=== PATIENT | male | born 1935 | race Caucasian/White ===

== ENCOUNTER 2021-09-10 22:13 | Inpatient (IN) | payer MEDICARE, SELFPAY ==
[2021-09-10 22:32] VITALS: BP 194/130; PULSE 110; RESP 18; TEMP 37; O2SAT 97; BMI 34.4
--- NOTE | 2021-09-10 23:35 | ED_ITS ---
HPI - Male Genitourinary General: Chief complaint: Urogenital-Male Stated complaint: Urinary Problems Time Seen by Provider: 09/10/21 23:35 History of Present Illness: HPI Narrative: Mr. Soliz is an 86-year-old gentleman with significant past medical history of hypertension who presents emergency department due to urinary complaint. He reports a history of increasing of typical prostate enlargement symptoms including multiple nocturnal awakening and needs to urinate and decrease stream however today he developed acute onset hematuria and inability to void. Intensity of symptoms is moderate to severe. He notes discomfort with attempting to urinate and a burning sensation. He denies significant abdominal pain. No signs of infectious symptoms. No systemic symptoms. He denies similar episodes in the past Review of Systems General: Reports: 10 or more systems reviewed and unremarkable except in HPI and below PFSH ED PFSH: Medical History (Updated 09/11/21 @ 10:39 by Avery Galloway MD) Central retinal artery occlusion Not confirmed Diabetes mellitus Hypertension associated with diabetes Surgical History (Updated 09/11/21 @ 10:35 by Avery Galloway MD) History of appendectomy History of cholecystectomy Family History (Updated 09/11/21 @ 10:36 by Avery Galloway MD) Other Stroke Social History (Updated 09/11/21 @ 10:36 by Avery Galloway MD) Smoking and tobacco status: former smoker Alcohol intake: current Alcohol intake frequency: few times a month Physical Exam Narrative: EXAM NARRATIVE: GENERAL/CONSTITUTIONAL - well-appearing. Somewhat uncomfortable, standing in room Eyes - PERRL, no conjunctival injection ENMT - Atraumatic external nose and ears. Moist mucous membranes NECK - supple. trachea midline CARDIOVASCULAR - regular rate and rhythm. Peripheral pulses 2+ and equal RESPIRATORY -clear to auscultation bilaterally. No retractions or accessory muscle use. ABDOMEN/GI -mild generalized tenderness to palpation/Nondistended. No tenderness to percussion or evidence of peritonitis MSK - Extremities without obvious deformity or tenderness to palpation SKIN - Warm, Dry NEURO - alert and appropriately oriented. Moves all extremities equally. Course ED course: - Patient was seen and evaluated by me at bedside - Patient placed on cardiac monitors, IV access obtained - Initial evaluation notable for uncomfortable appearance, no acute distress -Symptom treatment ordered - Labs notable for mild leukocytosis, metabolic panel notable for TAYLOR. Urinalysis with packed RBCs, no evidence of infection - Imaging notable for enlarged prostate with significant distention/burden despite catheter -Discussed case with Dr. Gupta, patient to be admitted to his service for acute clot retention. As discussed with him irrigated bladder manually with 2 to 3 L followed by CBI. Instructed nurse as such - Upon serial reexamination after treatment the patient was improved with symptomatic treatment - Medicine service consulted for comanagement of hypertension - Based on patient history, evaluation, labs, and imaging as interpreted the most likely cause of the patient's condition is acute clot retention - The results of ED evaluation were discussed with the patient including plan for admission due to requirement for level of care not available if discharged to prevent significant worsening/deterioration. -Patient to be admitted to hospital for further management. - Patient was admitted without further deterioration or significant events. Vital Signs: Vital signs: Vital Signs Temperature 98.3 F 09/13/21 00:00 Pulse Rate 80 09/13/21 00:00 Respiratory Rate 18 09/13/21 00:00 Blood Pressure 174/106 09/13/21 00:00 Pulse Oximetry 96 09/13/21 00:00 MDM - Male Medical Records: Attestation: I reviewed the patient's medical records. Lab Data: Attestation: I reviewed the patient's lab results. Labs: Lab Results 09/11/21 09/11/21 09/11/21 00:45 00:45 01:10 WBC 12.5 10^3/uL H 10 ^3/uL (4.0-10.0) RBC 4.78 10^6/uL 10^6 /uL (4.1-5.3) Hgb 14.1 g/dL g/dL (11.7-16.6) Hct 42.4 % % (42.0-52.0) MCV 88.7 fl fl (80-94) MCH 29.5 pg pg (28.0-34.0) MCHC 33.3 g/dL g/dL (30.0-36.0) RDW 12.9 % % (12.1-15.1) Plt Count 303 10^3/cmm 10^3 /cmm (130-400) MPV 9.9 fL fL (7.4-10.4) Neut % (Auto) 78.4 % % Lymph % (Auto) 12.6 % % [place] % (Auto) 7.2 % % Eos % (Auto) 0.7 % % Baso % (Auto) 0.6 % % Neut # (Auto) 9.81 10^3/uL H 10 ^3/uL (1.8-7.7) Lymph # (Auto) 1.6 10^3/uL 10^3/ uL (0.8-4.8) [place] # (Auto) 0.9 10^3/uL 10^3/ uL (0.2-0.9) Eos # (Auto) 0.1 10^3/uL 10^3/ uL (0.0-0.8) Baso # (Auto) 0.1 10^3/uL 10^3/ uL (0.0-0.1) Nucleated RBC % (a uto) 0 % % Nucleated RBCs # 0.0 /100WBC /100W BC Sodium 137 mmol/L mmol/L (136-145) Potassium 3.6 mmol/L mmol/L (3.5-5.1) Chloride 96 mmol/L L mmol/ L (98-107) Carbon Dioxide 22 mmol/L mmol/L (22-29) Anion Gap 22.6 H (5-19) BUN 26 mg/dL H mg/dL (8-23) Creatinine 1.9 mg/dL H mg/dL (0.7-1.2) GFR Calculation Not Reportable Glucose 137 mg/dL H mg/dL (65-115) POC Glucose Calculated Osmolal ity 291 mOsm/kg mOsm/ kg (285-295) Calcium 9.7 mg/dL mg/dL (8.5-10.5) Total Bilirubin 0.6 mg/dL mg/dL (0.15-1.2) AST 16 U/L U/L (0-40) ALT 14 U/L U/L (0-41) Alkaline Phosphata se 84 IU/L IU/L (40-130) Total Protein 8.8 g/dL H g/dL (6.6-8.7) Albumin 4.8 g/dL g/dL (3.5-5.2) Globulin 4.0 g/dL g/dL (1.3-4.6) Urine Color Red (Yellow) Urine Appearance Cloudy (CLEAR) Urine pH 5 (5-7) Ur Specific Gravit y 1.015 (1.005-1.030) Urine Protein 3+ H (Negative) Urine Glucose (UA) Norm (Normal) Urine Ketones Negative (Negative) Urine Blood 3+ H (Negative) Urine Nitrate Negative (Negative) Urine Bilirubin Neg (Negative) Urine Urobilinogen Norm mg/dL mg/dL (Negative) Ur Leukocyte [place] ase Negative (Negative) Urine RBC Too numerous to c nt /hpf H /hpf (0-2) Urine WBC 0-4 /hpf H /hpf (0-5) Ur Squamous Epith Cells 0-4 /hpf H /hpf (0-5) Amorphous Sediment Not Reportable Urine Bacteria Trace /hpf /hpf (NONE) 09/11/21 11:45 WBC RBC Hgb Hct MCV MCH MCHC RDW Plt Count MPV Neut % (Auto) Lymph % (Auto) [place] % (Auto) Eos % (Auto) Baso % (Auto) Neut # (Auto) Lymph # (Auto) [place] # (Auto) Eos # (Auto) Baso # (Auto) Nucleated RBC % (a uto) Nucleated RBCs # Sodium Potassium Chloride Carbon Dioxide Anion Gap BUN Creatinine GFR Calculation Glucose POC Glucose 148 mg/dL H mg/dL (70-110) Calculated Osmolal ity Calcium Total Bilirubin AST ALT Alkaline Phosphata se Total Protein Albumin Globulin Urine Color Urine Appearance Urine pH Ur Specific Gravit y Urine Protein Urine Glucose (UA) Urine Ketones Urine Blood Urine Nitrate Urine Bilirubin Urine Urobilinogen Ur Leukocyte [place] ase Urine RBC Urine WBC Ur Squamous Epith Cells Amorphous Sediment Urine Bacteria Discharge Plan Discharge Admit Provider: Samra Felton Coding Level of Care Code ED Plastic Extruding Machine Operator for [facility]
[2021-09-11] VITALS (12 sets, daily range): BP systolic 131–215; BP diastolic 79–124; PULSE 76–131; RESP 16–28; TEMP 36.8–37.3; O2SAT 91–98; BMI 34.4
--- NOTE | 2021-09-11 00:14 | CTR_ITS ---
PROCEDURE INFORMATION: Exam: CT Abdomen And Pelvis Without Contrast Exam date and time: 09/11/2021 12:14 AM Age: 86 years old Clinical indication: Abdominal pain; Localized; Lower; Prior surgery; Surgery type: Gb; Patient HX: Pelvic/penile pain with hematuria. Trimble in place. ; Additional info: Urinary pain, hematuria, tachycardia TECHNIQUE: Imaging protocol: Computed tomography of the abdomen and pelvis without contrast. Radiation optimization: All CT scans at this facility use at least one of these dose optimization techniques: automated exposure control; mA and/or kV adjustment per patient size (includes targeted exams where dose is matched to clinical indication); or iterative reconstruction. COMPARISON: No relevant prior studies available. RADIATION DOSE METRICS: Total DLP (mGy-cm): 1794.87 FINDINGS: Tubes, catheters and devices: There is a Trimble catheter within the urinary bladder which remains distended. Liver: No mass. Gallbladder and bile ducts: Status post cholecystectomy. Pancreas: No ductal dilation. Spleen: No splenomegaly. Adrenal glands: Normal. No mass. Kidneys and ureters: Bilateral renal cysts. See below. Stomach and bowel: No dilated bowel loops. No high-grade obstruction. Appendix: No evidence of appendicitis. Intraperitoneal space: No free air. No significant fluid collection. Vasculature: No abdominal aortic aneurysm. Lymph nodes: Multiple enlarged retroperitoneal, pelvic, and iliac chain lymph nodes. Slightly prominent left inguinal lymph nodes. Urinary bladder: There is globular hyperdense material within the bladder probably representing blood products. Bilateral hydroureteronephrosis to the level of the urinary bladder, left greater than right. Reproductive: Enlarged heterogeneous prostate gland noted. Bones/joints: Severe degenerative changes noted in the lumbar spine associated canal and foraminal stenosis most prominent at L3-L4, L4-L5 and L5-S1. Soft tissues: Predominantly fat containing inguinal hernias. CT/CT kidney stone [id number] IMPRESSION: 1. Enlarged heterogeneous prostate gland, underlying malignant mass is not excluded, correlate with patient history. There is a Trimble catheter within the urinary bladder which remains distended. There is globular hyperdense material within the bladder probably representing blood products. 2. Bilateral hydroureteronephrosis to the level of the urinary bladder, left greater than right. 3. Multiple enlarged retroperitoneal, pelvic and iliac chain lymph nodes. COMMENTS: Consistent with the [employer]'s Incidental Findings Committee white paper (J Am Dave Radiol 2018): Any incidental renal lesion less than 1 cm or classified as too small to characterize, or any incidental cystic renal lesion characterized as simple-appearing, is likely benign. No follow-up imaging is recommended for these lesions per consensus recommendations based on imaging criteria. Radiation Dose CTDIVOL = (mGy): DLP = 1794.87 (mGy-cm)
[2021-09-11] MEDS: morphine 4 mg/mL SDV 1 mL IVP (00:27)
[2021-09-11] MEDS: sodium chloride 0.9% 1,000 ML 999 ML IV (00:27)
[2021-09-11 01:01] LABS: Basophils # 0.1 10^3/uL (0.0-0.1); Basophils % 0.6 %; Eosinophils # 0.1 10^3/uL (0.0-0.8); Eosinophils % 0.7 %; Hematocrit 42.4 % (42.0-52.0); Hemoglobin 14.1 g/dL (11.7-16.6); Lymphocytes # 1.6 10^3/uL (0.8-4.8); Lymphocytes % 12.6 %; Mean Corpuscular HGB Conc 33.3 g/dL (30.0-36.0); Mean Corpuscular Hemoglobin 29.5 pg (28.0-34.0); Mean Corpuscular Volume 88.7 fl (80-94); Mean Platelet Volume 9.9 fL (7.4-10.4); Monocytes # 0.9 10^3/uL (0.2-0.9); Monocytes % 7.2 %; Neutrophils # 9.81 10^3/uL (1.8-7.7); Neutrophils % 78.4 %; Nucleated Red Blood Cells % 0 %; Platelet Count 303 10^3/cmm (130-400); Red Blood Count 4.78 10^6/uL (4.1-5.3); Red Cell Distribution Width 12.9 % (12.1-15.1); White Blood Count 12.5 10^3/uL (4.0-10.0)
[2021-09-11 01:24] LABS: Alanine Aminotransferase 14 U/L (0-41); Albumin Level 4.8 g/dL (3.5-5.2); Alkaline Phosphatase 84 IU/L (40-130); Anion Gap 22.6 (5-19); Aspartate Amino Transferase 16 U/L (0-40); Blood Urea Nitrogen 26 mg/dL (8-23); Calcium 9.7 mg/dL (8.5-10.5); Carbon Dioxide 22 mmol/L (22-29); Chloride 96 mmol/L (98-107); Glucose 137 mg/dL (65-115); Osmolality Calculated 291 mOsm/kg (285-295); Potassium 3.6 mmol/L (3.5-5.1); Sodium 137 mmol/L (136-145); Total Bilirubin 0.6 mg/dL (0.15-1.2); Total Protein 8.8 g/dL (6.6-8.7)
[2021-09-11 01:27] LABS: Add Urine Culture? Yes; Add Urine Microscopic? YES; Bacteria Urine TRACE /hpf; Bilirubin Urine Neg (Negative); Blood Urine 3+ (Negative); Glucose Urine UA Norm (Normal); Ketones Urine Negative (Negative); Leukocyte Esterase Urine Negative (Negative); Nitrate Urine Negative (Negative); Protein Urine 3+ (Negative); RBC Urine TOO NUMEROUS TO CNT /hpf (0-2); Specific Gravity, Urine 1.015 (1.005-1.030); Squamous Epithelial Cell Urine 0-4 /hpf (0-5); Urine Appearance Cloudy (CLEAR); Urine Color Red (Yellow); Urobilinogen Urine Norm (Negative); WBC Urine 0-4 /hpf (0-5); pH Urine 5 (5-7)
[2021-09-11] MEDS: fentaNYL 50 mcg/mL INJ 2mL IVP (01:52)
[2021-09-11] MEDS: HYDROmorphone 1 mg/mL INJ 1 mL IVP ×3 (02:35→06:19)
[2021-09-11] MEDS: ketorolac 30 mg/mL INJ 15 MG IVP (03:58)
[2021-09-11] MEDS: sodium chloride 0.9% 1,000 ML 100 ML IV ×2 (04:11→14:47)
[2021-09-11] MEDS: tamsulosin 0.4 mg Capsule PO (04:26)
--- NOTE | 2021-09-11 07:16 | PC.PHAR ---
pts verified pts medications-rx filled on 07/04/21 for flomax 0.4mg daily pts states she is not giving the pt that medication states it makes him sick-pts states she is giving the pt finasteride 5mg bid rx filled for 5mg daily filled on 07/04/21 90d/s-pts states the pt had nitro 0.4mg tab to use prn states the pt doesnt have anymore and never needed it-pts states she gave the pt azo-uronalin from [place] and only gave the pt one tab once yesterday-notes are made in the pharmacy comments
--- NOTE | 2021-09-11 07:55 | P.CONIM_ITS ---
Providers/Reason For Consult Consulting Physician/Specialty*: Urology/Gupta Reason for Consult*: Urinary retention Gross hematuria Attending Physician: Avery Galloway MD History of Present Illness History of Present Illness Alexi Soliz is a 86 year old male who I evaluated for the first time today at the request of the emergency department. He presented with urinary retention about 10 PM last night with several days of increasing symptoms. Had a little bit of blood in his urine off and on during those days but denies any prior history of that. He thought that he he has been having gradually progressive lower urinary tract symptoms consistent with bladder obstruction over period of time but did not pay a lot of attention to it. Unaware of prior PSAs or DREs. CT scan was performed in the emergency department with the importance of following findings: 1. Bilateral hydronephrosis left greater than sign right down to the ureterovesical junction 2. Grossly abnormal prostate with apparent encroachment upon the bladder floor and likely the ureteral orifices and trigone. 3. Pelvic lymphadenopathy 4. Small amount of blood clot in the bladder at time of CT scan. Catheter was not draining very well at that time. Lab: Creatinine 1.9, alkaline phosphatase was normal, hemoglobin was around 14. Urinalysis was bloody without obvious infection. Treatment: Initially a 16 [place] catheter was placed but was not draining adequately. A 22 Mexican three-way Deneen hematuria Cou[place] catheter was placed clot irrigated and CBI initiated. Catheter has been functioning well since then. Pertinent physical findings: Grossly abnormal GEOVANNY with nodularity and size commiserate with the findings on the CT scan. 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 Evidence of lymphadenopathy consistent with regional metastasis. I reviewed all the above in detail with the patient and his . Categorized priorities as followin. Focus on catheter management for now with CBI manual irrigation etc. 2. Will need prostate biopsy 3. Sequencing of events to be determined still. 4. BICALUTAMIDE 50 mg daily. Review of Systems Const: Denies: fever(s) or chills Eyes: Denies: change in vision or blurry vision ENMT: Denies: hoarseness Card: Denies: chest pain or palpitations Resp: Denies: dyspnea or wheezing GI: Reports: abdominal pain; Denies: nausea or vomiting Musc: Denies: joint redness or joint warmth Skin/Breast: Denies: rash or changing lesions Neuro: Denies: confusion, Slurred speech present or seizure-like activity Psych: Reports: anxiety (Related to medical condition) Endo: Denies: flushing Luis/Lymph: Denies: easy bruising All/Imm: Denies: urticaria or acute wheezing Meds/Allergies Home Medications and Allergies Home Medications Medication Instructions Recorded Confirmed Last Taken Type Azo-Uronalin 1 tab PO ONCE 09/11/21 09/11/21 09/10/21 History aspirin [Aspir-81] 81 mg PO QAM 09/11/21 09/11/21 Unknown History finasteride 5 mg PO BID 09/11/21 09/11/21 Unknown History hydrochlorothiazide 25 mg PO QAM 09/11/21 09/11/21 Unknown History metformin 850 mg PO BID 09/11/21 09/11/21 Unknown History metoprolol tartrate 50 mg PO BID 09/11/21 09/11/21 Unknown History zstiurwfrvll-gcyllflp-sbghfo 1 tab PO DAILY 09/11/21 09/11/21 Unknown History [Centrum Silver] telmisartan See Rx Instructions .ROUTE .COMPLEX 09/11/21 09/11/21 Unknown History vit C,E-Co-lypls-lutein-zeaxan 1 tab PO BID 09/11/21 09/11/21 Unknown History [PreserVision AREDS-2] Allergies Allergy/AdvReac Type Severity Reaction Status Date / Time No Known Allergies Allergy Verified 09/11/21 07:16 Current Medications Current Medications Generic Name Dose Route Start Last Admin Trade Name Freq PRN Reason Stop Dose Admin Sodium Chloride 1,000 mls @ 100 mls/hr 09/11/21 04:15 09/11/21 04:11 Sodium Chloride 0.9% IV 100 mls/hr .Q10H LOLITA Administration PFSH Acute PFSH: Medical History (Updated 09/11/21 @ 10:39 by Avery Galloway MD) Central retinal artery occlusion Not confirmed Diabetes mellitus Hypertension associated with diabetes Surgical History (Updated 09/11/21 @ 10:35 by Avery Galloway MD) History of appendectomy History of cholecystectomy Family History (Updated 09/11/21 @ 10:36 by Avery Galloway MD) Other Stroke Social History (Updated 09/11/21 @ 10:36 by Avery Galloway MD) Smoking and tobacco status: former smoker Alcohol intake: current Alcohol intake frequency: few times a month Vitals/I&O/Wt Last Vital Signs Temp 99.0 F 09/11/21 06:59 Pulse 101 H 09/11/21 06:59 Resp 18 09/11/21 06:59 BP 131/95 09/11/21 06:59 Pulse Ox 97 09/11/21 06:59 09/10/21 09/11/21 09/11/21 22:59 06:59 14:59 Intake Total 1000 / 1000 Balance 1000 / 1000 Weight last 48 hrs Weight 220 lb Physical Exam Const: COMMON NORMALS: no acute distress, alert and well nourished GENERAL APPEARANCE: well kempt and well developed ORIENTATION/CONSCIOUSNESS: not confused HENMT: COMMON NORMALS: normocephalic and atraumatic HEAD & SCALP: normoce phalic and atraumatic Eye: COMMON NORMALS: conjunctivae normal and no scleral icterus CONJUNCTIVA: Yes conjunctivae normal Neck/C-Spine: COMMON NORMALS: full ROM GENERAL: Yes normal visual i nspection Resp: COMMON NORMALS: normal respiratory effort EFFORT & INSPECTION: No labored and No Actively coughing GI: COMMON NORMALS: Soft to palpation PALPATION: Yes Soft to palpation and No Tenderness to palpation present (GI) RECTAL EXAM: Yes visual inspection normal, Yes normal sphincter tone and No mass OTHER: Grossly abnormal prostate: Nodular, huge, can only palpate the distal aspect. Consistent with locally invasive HUMAN RESOURCE ANALYST. : MALE GROIN/PERINEUM EXAM: No ecchymosis and No hernia PENIS: normal penis MEATUS: meatus normal, no meatla discharge and No Blood at meatus present SCROTUM: Yes testes descended bilaterally, No edematous and No scrotal swelling TESTES: No absent testicle, No testicular tenderness, No testicular mass, Yes epididymides normal and No epididymal tenderness Neuro: SENSORIUM/ORIENTATION: Yes alert Psych: COMMON NORMALS: mental status grossly normal APPEARANCE: Yes grossly normal and Yes well kempt ATTITUDE: Yes calm and Yes engaged Skin: COMMON NORMALS: no rashes or lesions noted and no jaundice GENERAL SKIN EXAM: no rashes or lesions noted Urinary Catheter Management^: Trimble: Cath Placed During This Visit: yes Reason for Continuing Indwelling Catheter: Acute Urinary Retention or Obstruction Urinary Catheter Date of Insertion: 09/11/21 Urinary Catheter Time of Insertion: 03:45 A&P Assessment and plan (1) Acute urinary retention: Possibly clot related but more likely related to progressive obstruction from prostatic growth worrisome for prostate cancer. Status: Acute (2) Bilateral hydronephrosis: Status: Acute (3) Abnormal prostate on physical examination: Clinically consistent with prostate cancer Status: Acute (4) Pelvic lymphadenopathy: Status: Acute (5) Gross hematuria: Clinically and radiographically. Annual irrigate continue CBI as needed. Status: Acute Consult Attestations Medical Necessity Statement: Urinary retention with gross hematuria requiring CBI Coding Level of Care Code Acute Regional Sales Coordinator for [facility] Fwd Exam Comprehensive Diagnoses Acute urinary retention R33.8 Bilateral hydronephrosis N13.30 Abnormal prostate on physical examination N42.9 Pelvic lymphadenopathy R59.0 Gross hematuria R31.0
--- NOTE | 2021-09-11 10:32 | PM.HP ---
Providers/Chief Complaint Admitting Physician: Avery Yanez Chief Complaint: Urinary Problems History of Present Illness Alexi Soliz is a 86 year old male who presented to the emergency department with complaints of abdominal discomfort, noting blood in his urine. Slow urine flow has been going on for quite a while but concerns of obstruction in the last 1 to 2 days. No fevers, chills. No vomiting. Pain is better after placement of Trimble catheter. Urology has been consulted secondary to concern of prostate cancer, bilateral hydronephrosis. Review of Systems General: Reports: 10 or more systems reviewed and unremarkable except in HPI and below Const: Denies: fever(s) or chills Eyes: Denies: change in vision ENMT: Denies: throat pain Card: Denies: chest pain Resp: Denies: dyspnea GI: Reports: abdominal pain : Reports: difficulty urinating, urinary dribbling, oliguria and hematuria Musc: Denies: neck pain Skin/Breast: Denies: rash Neuro: Denies: headache(s) Psych: Denies: anxiety Endo: Denies: polyuria Luis/Lymph: Denies: easy bruising All/Imm: Denies: urticaria Medications/Allergies Home Medications Medication Instructions Recorded Confirmed Last Taken Type Azo-Uronalin 1 tab PO ONCE 09/11/21 09/11/21 09/10/21 History aspirin [Aspir-81] 81 mg PO QAM 09/11/21 09/11/21 Unknown History finasteride 5 mg PO BID 09/11/21 09/11/21 Unknown History hydrochlorothiazide 25 mg PO QAM 09/11/21 09/11/21 Unknown History metformin 850 mg PO BID 09/11/21 09/11/21 Unknown History metoprolol tartrate 50 mg PO BID 09/11/21 09/11/21 Unknown History tgfjbhkvrvwb-nempnvmd-cyeezo 1 tab PO DAILY 09/11/21 09/11/21 Unknown History [Centrum Silver] telmisartan See Rx Instructions .ROUTE .COMPLEX 09/11/21 09/11/21 Unknown History vit C,D-Qk-viuwe-lutein-zeaxan 1 tab PO BID 09/11/21 09/11/21 Unknown History [PreserVision AREDS-2] Allergies Allergy/AdvReac Type Severity Reaction Status Date / Time No Known Allergies Allergy Verified 09/11/21 07:16 PFSH Acute PFSH: Medical History (Updated 09/11/21 @ 10:39 by Avery Galloway MD) Central retinal artery occlusion Not confirmed Diabetes mellitus Hypertension associated with diabetes Surgical History (Updated 09/11/21 @ 10:35 by Avery Galloway MD) History of appendectomy History of cholecystectomy Family History (Updated 09/11/21 @ 10:36 by Avery Galloway MD) Other Stroke Social History (Updated 09/11/21 @ 10:36 by Avery Galloway MD) Smoking and tobacco status: former smoker Alcohol intake: current Alcohol intake frequency: few times a month Vitals/I&O/Wt Last Vital Signs Temp 98.2 F 09/11/21 08:08 Pulse 88 09/11/21 08:08 Resp 16 09/11/21 08:08 BP 159/93 09/11/21 08:08 Pulse Ox 93 09/11/21 08:08 09/10/21 09/11/21 09/11/21 22:59 06:59 14:59 Intake Total 1000 / 1000 360 / 360 Balance 1000 / 1000 360 / 360 Weight last 48 hrs Weight 99.79 kg Physical Exam Narrative: EXAM NARRATIVE: General exam is a male, in no apparent distress HEENT: Atraumatic and normocephalic. Oropharynx clear Neck is supple no lymphadenopathy or thyromegaly Cardiovascular regular rate and rhythm Lungs clear no wheezing or crackles Abdomen is soft, positive bowel sounds. No obvious organomegaly exam is deferred Extremities no cyanosis clubbing. Trace edema is noted. Skin no rash Neuro no focal deficits Urinary Catheter Management^: Trimble: Cath Placed During This Visit: yes Reason for Continuing Indwelling Catheter: Acute Urinary Retention or Obstruction Urinary Catheter Date of Insertion: 09/11/21 Urinary Catheter Time of Insertion: 03:45 Data : 09/11/21 00:45 09/11/21 00:45 Other data: LFTs within normal limits Calcium normal Urinalysis with too numerous to count red blood cells and 0-[address] demonstrated enlarged prostate, bilateral hydronephrosis, enlarged retroperitoneal pelvic lymph nodes A&P Assessment and plan (1) Gross hematuria: Trimble placement, irrigation. Urology consultation appreciated Urine culture pending Rocephin pending culture. However, likelihood of bacterial infection may be low. Repeat hemoglobin in the a.m. Status: Acute (2) Acute urinary retention: Trimble placement. Likely secondary to prostate cancer. Status: Acute (3) Bilateral hydronephrosis: Trimble placement Status: Acute (4) Pelvic lymphadenopathy: Probable prostate cancer Urology consulted Status: Acute (5) Acute kidney injury: Hydration Repeat renal function in the morning Likely secondary to urinary retention and hydronephrosis Avoid anti-inflammatories and renal toxic medication. Status: Acute (6) Diabetes mellitus: Sliding scale insulin Status: Acute (7) Hypertension associated with diabetes: Continue to metoprolol Hold ARB secondary to renal dysfunction Hold thiazide diuretic secondary to renal dysfunction Status: Acute Additional A&P Information Full code SCDs for DVT prophylaxis, anticoagulation contraindicated secondary to hematuria Attestations Medical Necessity Statement*: Will need greater than 2 midnight stay for evaluation and treatment of acute kidney injury, obstructive uropathy, hematuria Time Spent in Patient Care: Greater than 35 minutes Coding Level of Care Code Acute Student Services Vice President for [facility] Fwd Diagnoses Gross hematuria R31.0 Acute urinary retention R33.8 Bilateral hydronephrosis N13.30 Pelvic lymphadenopathy R59.0 Acute kidney injury N17.9 Diabetes mellitus E11.9 Hypertension associated with diabetes E11.59; I15.2
--- NOTE | 2021-09-11 10:35 | PC.NURSE ---
patient was up to bathroom and CBI was noted not to be dripping. Pt was uncomfortable at this time. This nurse irrigated with a total of 200mL sterile saline and a large amount of medium sized clots and a total of 250mL returned. patient stated he felt better and pain had decreased from 8/10 to 3/10. CBI was hooked back up and pt running at a fast drip at this time. Resting in bed, call light within reach.
--- NOTE | 2021-09-11 10:56 | PC.CHAP ---
Pastoral Care Encounter/Spiritual Assessment Type of Contact [] Declined bargain table clerk visit [] Patient/Family/Request visit [] Outpatient visit [] Follow-up visit [] Physician referral [] Code/Alert [x] Routine visit [] Staff referral [] Actively dying [] Patient sleeping [] Family support [] [] Out of room [] Palliative care [] [x] Receiving care in room [] Pre-surgical visit [] Trauma [x] Long length of stay [] ICU visit [x] Other: unable to communicate Relational/Emotional Strength [] Patient feels connected with others/family/visitors/staff [] Distress [] Loneliness/isolation [] Abandonment Spirituality of Patient [] Person of Mickie [] Attends Jain of their Mickie [] Believes in Prayer [] Reads Bible or Druze materials [] There are Spiritual issues to be addressed And Rescue Fire Fighter Crash Fire Interventions [] Prayer [] Active listening [] Non-anxious presence [] Spiritual/emotional support [] Crisis/trauma care [] Spiritual counseling [] Bereavement support [] Provided bereavement packet [] Provided Bible/devotional materials [] Provided toy/stuffed animal, coloring book to patient or family member [] Provided Communion [] Anointing/[place] [] Salvation [] Completed spiritual assessment [] Other: Impact on Illness or Injury [] Angry [] Fearful [] Anxious [] Often cries [] Exhaustion [] Unable to work [] Unable to attend jehovah's witness [] Unable to walk/stand [] Unable to read [] Unable to drive [] Unable to eat/drink [] Unable to sleep [] Unable to be with family [] Patient intubated [] Other: Summary unable to communicate Time spent with patient 5 mins
[2021-09-11] MEDS: cefTRIAXone 1,000 MG in sodium chloride 0.9% (plus) 50 ML 100 MG IV (11:48)
[2021-09-11 12:18] LABS: Glucose Point of Care 148 mg/dL (70-110)
[2021-09-11] MEDS: insulin lispro 100 unit/1 mL SUBCUT (12:30)
[2021-09-11 17:14] LABS: Glucose Point of Care 140 mg/dL (70-110)
[2021-09-11] MEDS: docusate sodium 100 mg Capsule PO (17:26)
[2021-09-11] MEDS: metoprolol tartrate 50 mg Tablet PO (17:26)
--- NOTE | 2021-09-11 20:04 | PC.NURSE ---
BP BP 191/100 reported to pt care nurse
[2021-09-11 21:07] LABS: Glucose Point of Care 129 mg/dL (70-110)
[2021-09-11] MEDS: acetaminophen 325 mg Tablet 650 MG PO (21:10)
[2021-09-11] MEDS: oxyCODONE 5 mg IR Tab/Cap PO (21:10)
[2021-09-12] VITALS (11 sets, daily range): BP systolic 174–185; BP diastolic 75–131; PULSE 65–101; RESP 18–20; TEMP 36.4–36.9; O2SAT 94–98
[2021-09-12] MEDS: sodium chloride 0.9% 1,000 ML 100 ML IV (00:30)
[2021-09-12] MEDS: morphine 4 mg/mL SDV 1 mL 2 MG IVP (01:09)
[2021-09-12] MEDS: acetaminophen 325 mg Tablet 650 MG PO (04:17)
[2021-09-12] MEDS: oxyCODONE 5 mg IR Tab/Cap PO ×3 (04:17→22:27)
[2021-09-12 05:39] LABS: Basophils # 0.1 10^3/uL (0.0-0.1); Basophils % 0.8 %; Eosinophils # 0.4 10^3/uL (0.0-0.8); Eosinophils % 5.1 %; Hemoglobin 12.3 g/dL (11.7-16.6); Lymphocytes # 1.8 10^3/uL (0.8-4.8); Lymphocytes % 23.2 %; Mean Corpuscular HGB Conc 32.4 g/dL (30.0-36.0); Mean Corpuscular Hemoglobin 29.7 pg (28.0-34.0); Mean Corpuscular Volume 91.8 fl (80-94); Mean Platelet Volume 10.2 fL (7.4-10.4); Monocytes # 0.7 10^3/uL (0.2-0.9); Monocytes % 8.6 %; Neutrophils # 4.87 10^3/uL (1.8-7.7); Neutrophils % 61.8 %; Nucleated Red Blood Cells % 0 %; Platelet Count 247 10^3/cmm (130-400); Red Blood Count 4.14 10^6/uL (4.1-5.3); Red Cell Distribution Width 13.2 % (12.1-15.1); White Blood Count 7.9 10^3/uL (4.0-10.0)
--- NOTE | 2021-09-12 05:57 | PC.NURSE ---
Patient resting in bed, remains hypertensive with remaining VSS, c/o pain and is relieved by pain medication regimen in JAN. Patient has CBI running half open. Patient does not tolerate full open irrigation. Irrigation currently running pink however multiple manual irrigations required throughout shift. Patient tends to get out of bed with bladder fills and starts hurting, this causes irrigation to clot off and more manual irrigation required. This nurse explained situation to patient and that discomfort is expected when irrigation is wide open. WIll continue to monitor patient until report and handoff to oncoming nurse at shift change.
[2021-09-12 06:00] LABS: Blood Urea Nitrogen 23 mg/dL (8-23); Calcium 8.9 mg/dL (8.5-10.5); Carbon Dioxide 25 mmol/L (22-29); Chloride 101 mmol/L (98-107); Glucose 107 mg/dL (65-115); Magnesium 1.9 mg/dL (1.7-2.3); Osmolality Calculated 290 mOsm/kg (285-295); Sodium 138 mmol/L (136-145)
[2021-09-12 06:04] LABS: Anion Gap 15.9 (5-19); Potassium 3.9 mmol/L (3.5-5.1)
[2021-09-12 06:41] LABS: Glucose Point of Care 107 mg/dL (70-110)
[2021-09-12] MEDS: metoprolol tartrate 50 mg Tablet PO ×2 (08:41→18:10)
[2021-09-12] MEDS: docusate sodium 100 mg Capsule PO ×2 (08:41→18:10)
[2021-09-12] MEDS: tamsulosin 0.4 mg Capsule PO (08:42)
[2021-09-12] MEDS: amlodipine 5 mg Tablet PO (08:42)
--- NOTE | 2021-09-12 09:20 | PM.PN ---
Subjective Subjective: Interval history: Had some pain through the night. It sounds like this occurred when catheter was blocked. Reports no pain currently. Medications: Reviewed: Yes Vitals/I&O/Wt Last Vital Signs Temp 97.6 F 09/12/21 04:26 Pulse 65 09/12/21 04:26 Resp 20 H 09/12/21 04:26 BP 178/94 09/12/21 04:26 Pulse Ox 96 09/12/21 04:26 09/11/21 09/12/21 09/12/21 22:59 06:59 14:59 Intake Total 240 / 1650 1200 / 2850 Output Total 500 / 950 Balance -260 / 700 1200 / 1900 Weight last 48 hrs Weight 99.79 kg Weight 99.79 kg Physical Exam Narrative: EXAM NARRATIVE: General exam is a male, in no apparent distress Neck is supple no lymphadenopathy or thyromegaly Cardiovascular regular rate and rhythm Lungs clear no wheezing or crackles Abdomen is soft, positive bowel sounds. No obvious organomegaly urine in Trimble has cleared somewhat. Extremities no cyanosis clubbing, or edema Neuro no focal deficits Urinary Catheter Management^: Trimble: Cath Placed During This Visit: yes Reason for Continuing Indwelling Catheter: Other Urinary Catheter Date of Insertion: 09/11/21 Urinary Catheter Time of Insertion: 03:45 Data : 09/12/21 04:50 09/12/21 04:50 A&P Assessment and plan (1) Gross hematuria: Trimble placement, irrigation. Urology consultation appreciated Urine culture pending Rocephin pending culture. However, likelihood of bacterial infection may be low. Slight drop in hemoglobin noted. Status: Acute (2) Acute urinary retention: Trimble placement. Likely secondary to prostate cancer. Status: Acute (3) Bilateral hydronephrosis: Trimble placement Status: Acute (4) Pelvic lymphadenopathy: Probable prostate cancer Urology consulted Status: Acute (5) Acute kidney injury: Continue hydration Renal function improving Likely secondary to urinary retention and hydronephrosis Avoid anti-inflammatories and renal toxic medication. Status: Acute (6) Diabetes mellitus: Sliding scale insulin Status: Acute (7) Hypertension associated with diabetes: Continue to metoprolol Hold ARB secondary to renal dysfunction Hold thiazide diuretic secondary to renal dysfunction Add amlodipine 5 mg daily Status: Acute Additional A&P Information Full code SCDs for DVT prophylaxis, anticoagulation contraindicated secondary to hematuria Attestations Medical Necessity Statement*: Needs continued hospitalization, for hematuria and acute kidney injury for continued bladder irrigation. Coding Level of Care Code Acute Diesel Trailer Mechanic for Chg Fwd Diagnoses Gross hematuria R31.0 Acute urinary retention R33.8 Bilateral hydronephrosis N13.30 Pelvic lymphadenopathy R59.0 Acute kidney injury N17.9 Diabetes mellitus E11.9 Hypertension associated with diabetes E11.59; I15.2
[2021-09-12] MEDS: sodium chloride 0.9% 1,000 ML 75 ML IV ×2 (10:33→22:31)
[2021-09-12] MEDS: cefTRIAXone 1,000 MG in sodium chloride 0.9% (plus) 50 ML 100 MG IV (10:35)
--- NOTE | 2021-09-12 11:41 | PC.CHAP ---
Pastoral Care Encounter/Spiritual Assessment Type of Contact [x] Declined termite exterminator helper visit [] Patient/Family/Request visit [] Outpatient visit [] Follow-up visit [] Physician referral [] Code/Alert [x] Routine visit [] Staff referral [] Actively dying [] Patient sleeping [] Family support [] [] Out of room [] Palliative care [] [] Receiving care in room [] Pre-surgical visit [] Trauma [] Long length of stay [] ICU visit [] Other: Relational/Emotional Strength [] Patient feels connected with others/family/visitors/staff [] Distress [] Loneliness/isolation [] Abandonment Spirituality of Patient [] Person of Mickie [] Attends Christian of their Mickie [] Believes in Prayer [] Reads Bible or Denominational materials [] There are Spiritual issues to be addressed Fib[employer] Boat Parts Finisher Interventions [] Prayer [] Active listening [] Non-anxious presence [] Spiritual/emotional support [] Crisis/trauma care [] Spiritual counseling [] Bereavement support [] Provided bereavement packet [] Provided Bible/devotional materials [] Provided toy/stuffed animal, coloring book to patient or family member [] Provided Communion [] Anointing/[place] [] Salvation [x] Completed spiritual assessment [] Other: Impact on Illness or Injury [] Angry [] Fearful [] Anxious [] Often cries [] Exhaustion [] Unable to work [] Unable to attend zoroastrian [] Unable to walk/stand [] Unable to read [] Unable to drive [] Unable to eat/drink [] Unable to sleep [] Unable to be with family [] Patient intubated [] Other: Summary Time spent with patient
[2021-09-12 12:09] LABS: Glucose Point of Care 139 mg/dL (70-110)
--- NOTE | 2021-09-12 17:14 | P.PN_ITS ---
Subjective Subjective: Interval history: Urology follow-up: Has had a rough day with bladder pain and at times poor catheter function. I irrigated his catheter tonight with about 1000 cc of sterile water and removed about 100+ cc of clot. Relieved a lot of pain with that. CBI was flowing well afterwards. Reviewed with the nursing staff the importance of staying ahead of manual irrigation to remove clots especially if he is having pain, poor catheter drainage, poor CBI. Reviewed with patient and family. He is not able to be discharged yet. If it continues to be a problem I may have to take him to the operating room clot evacuation. The hope is to avoid that if it can be managed conservatively with manual irrigation and CBI Vitals/I&O/Wt Last Vital Signs Temp 97.7 F 09/12/21 16:00 Pulse 78 09/12/21 16:00 Resp 18 09/12/21 16:00 BP 174/109 09/12/21 16:00 Pulse Ox 96 09/12/21 16:00 09/12/21 09/12/21 09/12/21 06:59 14:59 22:59 Intake Total 1200 / 2850 1290 / 1290 Balance 1200 / 1900 1290 / 1290 Weight last 48 hrs Weight 220 lb Weight 220 lb Physical Exam Const: COMMON NORMALS: no acute distress, alert and well nourished GENERAL APPEARANCE: well kempt and well developed ORIENTATION/CONSCIOUSNESS: not confused HENMT: COMMON NORMALS: normocephalic and atraumatic HEAD & SCALP: normocephalic and atraumatic Eye: COMMON NORMALS: no scleral icterus Resp: COMMON NORMALS: normal respiratory effort EFFORT & INSPECTION: No labored and No Actively coughing Neuro: COMMON NORMALS: no focal motor deficits SENSORIUM/ORIENTATION: Yes alert Psych: COMMON NORMALS: mental status grossly normal APPEARANCE: Yes grossly normal and Yes well kempt ATTITUDE: Yes calm and Yes engaged Urinary Catheter Management^: Trimble: Cath Placed During This Visit: yes Reason for Continuing Indwelling Catheter: Other Urinary Catheter Date of Insertion: 09/11/21 Urinary Catheter Time of Insertion: 03:45 Data : 09/12/21 04:50 09/12/21 04:50 Micro: Microbiology 09/11/21 01:10 Urine Culture - Preliminary Urine,Clean Catch A&P Assessment and plan (1) Gross hematuria: Needs more aggressive catheter management with manual irrigation. Status: Acute (2) Abnormal prostate on physical examination: Status: Acute (3) Pelvic lymphadenopathy: Status: Acute (4) Acute urinary retention: Status: Acute (5) Bilateral hydronephrosis: Status: Acute Attestations Medical Necessity Statement*: CBI manual irrigation requirements are more than still required making him not a candidate for discharge yet. Coding Level of Care Code Acute Quality Assurance Test Program Manager for g Fwd Exam Detailed Diagnoses Gross hematuria R31.0 Abnormal prostate on physical examination N42.9 Pelvic lymphadenopathy R59.0 Acute urinary retention R33.8 Bilateral hydronephrosis N13.30 Time Spent (min) 45
[2021-09-12 17:47] LABS: Glucose Point of Care 152 mg/dL (70-110)
[2021-09-12] MEDS: insulin lispro 100 unit/1 mL SUBCUT (18:10)
--- NOTE | 2021-09-12 18:47 | PC.NURSE ---
CBI continued running during my shift. It required manual irrigation multiple times throughout my shift, with multiple small clots being returned. and patient educated on notifying staff when he gets up so we can make sure that the CBI is still working properly.
[2021-09-12 22:26] LABS: Glucose Point of Care 134 mg/dL (70-110)
[2021-09-13] VITALS (9 sets, daily range): BP systolic 144–175; BP diastolic 89–106; PULSE 67–102; RESP 16–20; TEMP 36.3–36.9; O2SAT 95–98
[2021-09-13 06:38] LABS: Glucose Point of Care 117 mg/dL (70-110)
[2021-09-13] MEDS: docusate sodium 100 mg Capsule PO (08:02)
[2021-09-13] MEDS: tamsulosin 0.4 mg Capsule PO (08:03)
[2021-09-13] MEDS: metoprolol tartrate 50 mg Tablet PO ×2 (08:03→17:43)
[2021-09-13] MEDS: amlodipine 5 mg Tablet PO (08:03)
--- NOTE | 2021-09-13 08:36 | PM.PN ---
Subjective Subjective: Interval history: Urology f/u: Doing well. Much less bleeding but CBI still required. No fever /chills, etc Denies bladder spasms. Rec: Continue CBI, if can stop can D/C and plan for OP biopsy. If continues to require CBI may scope in OR on Wednesday and do biopsy. Should be safe at that time regarding ASA effect. Vitals/I&O/Wt Last Vital Signs Temp 98.3 F 09/13/21 08:00 Pulse 102 H 09/13/21 08:00 Resp 16 09/13/21 08:00 BP 144/96 09/13/21 08:00 Pulse Ox 95 09/13/21 08:00 09/12/21 09/13/21 09/13/21 22:59 06:59 14:59 Intake Total 1257.5 / 2547.5 Output Total 100 / 650 5575 / 6225 Balance 1157.5 / 1897.5 -5575 / -3677.5 Physical Exam Const: COMMON NORMALS: no acute distress and patient oriented x3 Resp: COMMON NORMALS: normal respiratory effort EFFORT & INSPECTION: No respiratory distress GI: COMMON NORMALS: Soft to palpation, non-tender and no masses PALPATION: Yes Soft to palpation : COMMON NORMALS: Yes no CVA tenderness BLADDER/KIDNEY EXAM: Yes no CVA tenderness Back/Pelvis: COMMON NORMALS: no CVA tenderness Neuro: COMMON NORMALS: patient oriented x3 Psych: COMMON NORMALS: mental status grossly normal and cooperative ATTITUDE: Yes calm and Yes engaged Skin: COMMON NORMALS: no rashes or lesions noted GENERAL SKIN EXAM: no rashes or lesions noted Urinary Catheter Management^: Trimble: Cath Placed During This Visit: yes Reason for Continuing Indwelling Catheter: Accurate Measurement of Urinary Output in Critically Ill Patients Urinary Catheter Date of Insertion: 09/11/21 Urinary Catheter Time of Insertion: 03:45 Data : 09/12/21 04:50 09/12/21 04:50 Other Labs: PSA: 86 Micro: Microbiology 09/11/21 01:10 Urine Culture - Preliminary Urine,Clean Catch A&P Assessment and plan (1) Gross hematuria: Better after stepped up irrigation Status: Acute (2) Abnormal prostate on physical examination: consistent with science specialist PSA: 86 Status: Acute (3) Pelvic lymphadenopathy: Likely dental detail representative of science specialist, mets Status: Acute (4) Acute urinary retention: Trimble still necessary Status: Acute (5) Bilateral hydronephrosis: secondary to MALONEY Status: Acute Attestations Medical Necessity Statement*: Needs CBI Coding Level of Care Code Acute Can Closing Machine Tender for Chg Fwd Diagnoses Gross hematuria R31.0 Abnormal prostate on physical examination N42.9 Pelvic lymphadenopathy R59.0 Acute urinary retention R33.8 Bilateral hydronephrosis N13.30
[2021-09-13 09:06] LABS: Basophils # 0.1 10^3/uL (0.0-0.1); Basophils % 0.5 %; Eosinophils # 0.4 10^3/uL (0.0-0.8); Hematocrit 38.7 % (42.0-52.0); Hemoglobin 12.6 g/dL (11.7-16.6); Lymphocytes # 1.4 10^3/uL (0.8-4.8); Lymphocytes % 15.5 %; Mean Corpuscular HGB Conc 32.6 g/dL (30.0-36.0); Mean Corpuscular Hemoglobin 29.8 pg (28.0-34.0); Mean Corpuscular Volume 91.5 fl (80-94); Mean Platelet Volume 10.3 fL (7.4-10.4); Monocytes # 0.8 10^3/uL (0.2-0.9); Monocytes % 8.7 %; Neutrophils # 6.57 10^3/uL (1.8-7.7); Neutrophils % 70.8 %; Nucleated Red Blood Cells % 0 %; Platelet Count 261 10^3/cmm (130-400); Red Blood Count 4.23 10^6/uL (4.1-5.3); White Blood Count 9.3 10^3/uL (4.0-10.0)
[2021-09-13 09:57] LABS: Alanine Aminotransferase 17 U/L (0-41); Albumin Level 4.3 g/dL (3.5-5.2); Alkaline Phosphatase 90 IU/L (40-130); Anion Gap 16.6 (5-19); Aspartate Amino Transferase 27 U/L (0-40); Blood Urea Nitrogen 16 mg/dL (8-23); Calcium 9.2 mg/dL (8.5-10.5); Carbon Dioxide 26 mmol/L (22-29); Chloride 102 mmol/L (98-107); Glucose 107 mg/dL (65-115); Osmolality Calculated 294 mOsm/kg (285-295); Potassium 3.6 mmol/L (3.5-5.1); Sodium 141 mmol/L (136-145); Total Bilirubin 0.8 mg/dL (0.15-1.2); Total Protein 7.3 g/dL (6.6-8.7)
[2021-09-13] MEDS: cefTRIAXone 1,000 MG in sodium chloride 0.9% (plus) 50 ML 100 MG IV (10:10)
[2021-09-13 11:44] LABS: Glucose Point of Care 121 mg/dL (70-110)
[2021-09-13] MEDS: sodium chloride 0.9% 1,000 ML 75 ML IV (11:54)
[2021-09-13] MEDS: lactulose oral liq 20 gm/30 mL UDC PO (11:54)
[2021-09-13] MEDS: simethicone 80 mg Chew PO (11:54)
--- NOTE | 2021-09-13 12:13 | PM.PN ---
Subjective Subjective: Interval history: Seen and examined this morning with at bedside. Patient was very concerned about his constipation. The stated he usually goes every day but now it has been 2 days he has not gone to the bathroom. He stated that he wanted to have a bowel movement this very minute and I offered him an enema with to which he refused. I also offered a glycerin suppository to which he refused. stated that her son will be bringing some bananas and whether he could eat them. Also we have added stool softeners at this point and patient does demonstrate understanding that the stool softeners take some time to work. He also complained of a lot of bloating for which I offered him simethicone and he agreed to take it. CBI is going on and clots have cleared up. Urine was red-tinged this morning but no gross blood noted Vitals/I&O/Wt Last Vital Signs Temp 97.4 F L 09/13/21 11:37 Pulse 77 09/13/21 11:37 Resp 16 09/13/21 11:37 BP 175/91 09/13/21 11:37 Pulse Ox 98 09/13/21 11:37 09/12/21 09/13/21 09/13/21 22:59 06:59 14:59 Intake Total 1257.5 / 2547.5 1350 / 1350 Output Total 100 / 650 5575 / 6225 Balance 1157.5 / 1897.5 -5575 / -3677.5 1350 / 1350 Physical Exam Narrative: EXAM NARRATIVE: General: Alert oriented x3, patient seen laying in bed with at bedside. HEENT: Normocephalic, atraumatic, EOMI, Cardio: Regular rate rhythm, normal S1-S2, no murmurs rubs gallops, Respiratory: Good bilateral air entry, no wheezes no rhonchi appreciated GI: Abdomen soft, nontender, slightly distended/bloated, bowel sounds + Behavior: Appropriate and cooperative Extremities: no edema, no cyanosis Trimble in place with CBI continuing. Red-tinged urine but no gross blood noted. Urinary Catheter Management^: Trimble: Cath Placed During This Visit: yes Reason for Continuing Indwelling Catheter: Accurate Measurement of Urinary Output in Critically Ill Patients Urinary Catheter Date of Insertion: 09/11/21 Urinary Catheter Time of Insertion: 03:45 Data : 09/13/21 07:15 09/13/21 07:15 Micro: Microbiology 09/11/21 01:10 Urine Culture - Final Urine,Clean Catch A&P Assessment and plan (1) Gross hematuria: Trimble placement, irrigation. Urology on board and following the case closely. Recommendations are appreciated. Urine culture negative. Patient was on Rocephin pending culture. I will discontinue it at this point. Hemoglobin stable at 12.6. On admission it was 14. We will keep an eye on it. Status: Acute (2) Acute urinary retention: Trimble placement. Likely secondary to prostate cancer. Status: Acute (3) Bilateral hydronephrosis: Trimble placement Status: Acute (4) Pelvic lymphadenopathy: Probable prostate cancer Ultimate plan is to do a biopsy. However PSA is elevated at 86 and is probably prostate cancer at this point. Status: Acute (5) Acute kidney injury: Continue hydration Renal function improving Likely secondary to urinary retention and hydronephrosis Avoid anti-inflammatories and renal toxic medication. Status: Acute (6) Diabetes mellitus: Sliding scale insulin Status: Acute (7) Hypertension associated with diabetes: Continue to metoprolol Hold ARB secondary to renal dysfunction Hold thiazide diuretic secondary to renal dysfunction Increase amlodipine to 10 mg daily Status: Acute Additional A&P Information Full code SCDs for DVT prophylaxis, anticoagulation contraindicated secondary to hematuria Attestations Medical Necessity Statement*: Requires CBI ongoing. Anticipate > 48 hours of stay Time Spent in Patient Care: less than 15 minutes Coding Level of Care Code Acute Ditching Machine Operating Engineer for Chg Fwd Diagnoses Gross hematuria R31.0 Acute urinary retention R33.8 Bilateral hydronephrosis N13.30 Pelvic lymphadenopathy R59.0 Acute kidney injury N17.9 Diabetes mellitus E11.9 Hypertension associated with diabetes E11.59; I15.2
[2021-09-13] MEDS: amlodipine 10 mg Tablet PO (16:40)
[2021-09-13] MEDS: oxyCODONE 5 mg IR Tab/Cap PO ×2 (16:40→21:18)
[2021-09-13 17:18] LABS: Glucose Point of Care 104 mg/dL (70-110)
[2021-09-13 20:04] LABS: Glucose Point of Care 143 mg/dL (70-110)
[2021-09-13] MEDS: insulin lispro 100 unit/1 mL SUBCUT (20:26)
[2021-09-13] MEDS: acetaminophen 325 mg Tablet 650 MG PO (21:17)
[2021-09-14] MEDS: sodium chloride 0.9% 1,000 ML 75 ML IV ×2 (01:22→14:49)
[2021-09-14 03:37] VITALS: BP 182/98; PULSE 79; RESP 18; TEMP 36.4; O2SAT 98
[2021-09-14 06:36] LABS: Glucose Point of Care 133 mg/dL (70-110)
[2021-09-14 06:44] LABS: Basophils # 0.1 10^3/uL (0.0-0.1); Basophils % 0.9 %; Eosinophils # 0.4 10^3/uL (0.0-0.8); Eosinophils % 4.5 %; Hematocrit 37.5 % (42.0-52.0); Hemoglobin 12.2 g/dL (11.7-16.6); Lymphocytes # 1.5 10^3/uL (0.8-4.8); Lymphocytes % 17.7 %; Mean Corpuscular HGB Conc 32.5 g/dL (30.0-36.0); Mean Corpuscular Hemoglobin 29.5 pg (28.0-34.0); Mean Corpuscular Volume 90.6 fl (80-94); Mean Platelet Volume 10.4 fL (7.4-10.4); Monocytes # 0.9 10^3/uL (0.2-0.9); Monocytes % 10.2 %; Neutrophils # 5.73 10^3/uL (1.8-7.7); Neutrophils % 66.4 %; Nucleated Red Blood Cells % 0 %; Platelet Count 252 10^3/cmm (130-400); Red Blood Count 4.14 10^6/uL (4.1-5.3); Red Cell Distribution Width 12.9 % (12.1-15.1); White Blood Count 8.6 10^3/uL (4.0-10.0)
[2021-09-14 07:10] LABS: Anion Gap 16.5 (5-19); Blood Urea Nitrogen 14 mg/dL (8-23); Calcium 9.2 mg/dL (8.5-10.5); Carbon Dioxide 24 mmol/L (22-29); Chloride 102 mmol/L (98-107); Glucose 137 mg/dL (65-115); Magnesium 1.7 mg/dL (1.7-2.3); Osmolality Calculated 291 mOsm/kg (285-295); Potassium 3.5 mmol/L (3.5-5.1); Sodium 139 mmol/L (136-145)
[2021-09-14 07:55] VITALS: BP 157/88; PULSE 88; RESP 18; TEMP 36.6; O2SAT 97
--- NOTE | 2021-09-14 08:32 | PM.PN ---
Subjective Subjective: Interval history: Seen and examined this morning. Patient was able to have a bowel movement yesterday. He did have some clots upon flushing the Trimble this morning. Otherwise Trimble bag has clear yellow urine. The patient's is at bedside. They have no other complaints at this time. They are hoping to have a biopsy done tomorrow with Dr. Gupta. Medications: Reviewed: Yes Vitals/I&O/Wt Last Vital Signs Temp 97.8 F 09/14/21 07:55 Pulse 88 09/14/21 07:55 Resp 18 09/14/21 07:55 BP 157/88 09/14/21 07:55 Pulse Ox 97 09/14/21 07:55 09/13/21 09/14/21 09/14/21 22:59 06:59 14:59 Intake Total 240 / 1830 1000 / 2830 Output Total 850 / 850 Balance 240 / 1830 150 / 1980 Physical Exam Narrative: EXAM NARRATIVE: General: Alert oriented x3, patient seen sitting on edge of bed with at bedside. HEENT: Normocephalic, atraumatic, EOMI, Cardio: Regular rate rhythm, normal S1-S2, no murmurs rubs gallops, Respiratory: Good bilateral air entry, no wheezes no rhonchi appreciated GI: Abdomen soft, nontender, nondistended, bowel sounds + Behavior: Appropriate and cooperative Extremities: no edema, no cyanosis Trimble in place with CBI continuing. Clear yellow urine in Trimble bag today. Urinary Catheter Management^: Trimble: Cath Placed During This Visit: yes Reason for Continuing Indwelling Catheter: Other Urinary Catheter Date of Insertion: 09/11/21 Urinary Catheter Time of Insertion: 03:45 Data : 09/14/21 06:03 09/14/21 06:03 Micro: Microbiology 09/11/21 01:10 Urine Culture - Final Urine,Clean Catch A&P Assessment and plan (1) Gross hematuria: Trimble placement, irrigation. Urology on board and following the case closely. Recommendations are appreciated. Urine culture negative. Patient was on Rocephin pending culture. I will discontinue it at this point. Hemoglobin stable at 12.6. On admission it was 14. We will keep an eye on it. Status: Acute (2) Acute urinary retention: Trimble placement. Likely secondary to prostate cancer. Status: Acute (3) Bilateral hydronephrosis: Trimble placement Status: Acute (4) Pelvic lymphadenopathy: Probable prostate cancer Ultimate plan is to do a biopsy. However PSA is elevated at 86 and is probably prostate cancer at this point. Status: Acute (5) Acute kidney injury: Continue hydration Renal function improving Likely secondary to urinary retention and hydronephrosis Avoid anti-inflammatories and renal toxic medication. Status: Acute (6) Diabetes mellitus: Sliding scale insulin Status: Acute (7) Hypertension associated with diabetes: Continue to metoprolol Hold ARB secondary to renal dysfunction Hold thiazide diuretic secondary to renal dysfunction Increase amlodipine to 10 mg daily Status: Acute Additional A&P Information Full code SCDs for DVT prophylaxis, anticoagulation contraindicated secondary to hematuria Attestations Medical Necessity Statement*: .Possible biopsy tomorrow. Will discuss with Dr. Gupta before deciding to discharge patient. Coding Level of Care Code Acute Systems Support Engineer for Chg Fwd Diagnoses Gross hematuria R31.0 Acute urinary retention R33.8 Bilateral hydronephrosis N13.30 Pelvic lymphadenopathy R59.0 Acute kidney injury N17.9 Diabetes mellitus E11.9 Hypertension associated with diabetes E11.59; I15.2
[2021-09-14] MEDS: amlodipine 10 mg Tablet PO (08:46)
[2021-09-14] MEDS: tamsulosin 0.4 mg Capsule PO (08:46)
[2021-09-14] MEDS: docusate sodium 100 mg Capsule PO ×2 (08:46→18:40)
[2021-09-14] MEDS: metoprolol tartrate 50 mg Tablet PO ×2 (08:47→18:40)
--- NOTE | 2021-09-14 09:35 | PC.SOCIAL ---
IMM Update Page 2 of [facility] updated and reviewed. Initialed, timed and dated. Copy left in pts chart.
--- NOTE | 2021-09-14 09:40 | PC.NURSE ---
Manually irrigated patient. Instilled 180 mL and minimum clots returned. Hooked CBI back up and flow is good with no clots. Patient tolerated well.
--- NOTE | 2021-09-14 11:26 | P.PN_ITS ---
Subjective Subjective: Interval history: Urology follow-up: Overall improvement in status of urine bleeding. Has had a light flow with CBI with urine remaining clear yellow tinge. Does tend bloody up when he moves around more though. With regular irrigation there has been no large clots returned. The plan has been to wean off the CBI when capable and discharge when the catheter itself can be functioning without additional manual irrigation or CBI. Prostate biopsies are indicated but would like to wait until he has been off the aspirin for period of time to reduce risk of bleeding. Have empirically started BICALUTAMIDE with a presumptive diagnosis of prostate cancer in preparation for LHRH agonist therapy. We will reevaluate in the morning for the possibility of examination under anesthesia for clot evacuation possible fulguration and consideration for prostate biopsy at that time. At duration should be reasonably safe from a aspirin perspective. All this was reviewed with the patient. Still having some symptoms related to constipation. Denies increasing pain, fever, chills, bone pain. Medications: Reviewed: Yes Vitals/I&O/Wt Last Vital Signs Temp 97.8 F 09/14/21 07:55 Pulse 88 09/14/21 07:55 Resp 18 09/14/21 07:55 BP 157/88 09/14/21 07:55 Pulse Ox 97 09/14/21 07:55 09/13/21 09/14/21 09/14/21 22:59 06:59 14:59 Intake Total 240 / 1830 1000 / 2830 240 / 240 Output Total 850 / 850 Balance 240 / 1830 150 / 1980 240 / 240 Physical Exam Const: COMMON NORMALS: no acute distress, alert and well nourished GENERAL APPEARANCE: well kempt and well developed ORIENTATION/CONSCIOUSNESS: not confused HENMT: COMMON NORMALS: normocephalic and atraumatic HEAD & SCALP: normocephalic and atraumatic Eye: COMMON NORMALS: no scleral icterus Neck/C-Spine: COMMON NORMALS: full ROM GENERAL: Yes normal visual inspection Resp: COMMON NORMALS: normal respiratory effort EFFORT & INSPECTION: No labored and No Actively coughing GI: COMMON NORMALS: Soft to palpation, non-tender and no masses PALPATION: Yes Soft to palpation Neuro: SENSORIUM/ORIENTATION: Yes alert Psych: COMMON NORMALS: mental status grossly normal APPEARANCE: Yes grossly normal and Yes well kempt ATTITUDE: Yes calm and Yes engaged Skin: COMMON NORMALS: no rashes or lesions noted and no jaundice GENERAL SKIN EXAM: no rashes or lesions noted Urinary Catheter Management^: Trimble: Cath Placed During This Visit: yes Reason for Continuing Indwelling Catheter: Other Urinary Catheter Date of Insertion: 09/11/21 Urinary Catheter Time of Insertion: 03:45 Data : 09/14/21 06:03 09/14/21 06:03 Micro: Microbiology 09/11/21 01:10 Urine Culture - Final Urine,Clean Catch A&P Assessment and plan (1) Acute urinary retention: Preceded by long history of progressive lower urinary tract symptoms times at least 1 year. 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 Status: Acute Attestations Medical Necessity Statement*: Still requiring CBI although lower maintenance rate. Coding Level of Care Code Acute Comb Machine Operator for Chg Fwd Diagnoses Acute urinary retention R33.8 Pelvic lymphadenopathy R59.0 Abnormal prostate on physical examination N42.9 Bilateral hydronephrosis N13.30 Gross hematuria R31.0
[2021-09-14 11:29] VITALS: BP 144/86; PULSE 70; RESP 18; TEMP 36.9; O2SAT 98
[2021-09-14] MEDS: lactulose oral liq 20 gm/30 mL UDC PO ×2 (11:36→23:00)
[2021-09-14] MEDS: cefTRIAXone 1,000 MG in sodium chloride 0.9% (plus) 50 ML 100 MG IV (11:36)
[2021-09-14] MEDS: bisacodyl 5 mg Tablet PO (11:36)
[2021-09-14 12:08] LABS: Glucose Point of Care 126 mg/dL (70-110)
[2021-09-14 16:00] VITALS: BP 164/97; PULSE 97; RESP 18; TEMP 36.8; O2SAT 96
[2021-09-14 17:42] LABS: Glucose Point of Care 147 mg/dL (70-110)
[2021-09-14] MEDS: insulin lispro 100 unit/1 mL SUBCUT (18:39)
[2021-09-14 20:00] VITALS: BP 144/86; PULSE 97; RESP 22; TEMP 36.5; O2SAT 95
[2021-09-14 20:36] LABS: Glucose Point of Care 92 mg/dL (70-110)
[2021-09-14] MEDS: LORazepam 0.5 mg Tablet 0.25 MG PO (20:49)
[2021-09-14 23:34] VITALS: BP 133/86; PULSE 88; RESP 18; TEMP 36.7; O2SAT 98
[2021-09-15 02:04] VITALS: RESP 18
[2021-09-15] MEDS: oxyCODONE 5 mg IR Tab/Cap PO (02:04)
[2021-09-15 03:49] VITALS: PULSE 93; RESP 17; TEMP 36.8; O2SAT 97
[2021-09-15] MEDS: sodium chloride 0.9% 1,000 ML 75 ML IV (03:50)
[2021-09-15 04:23] VITALS: BP 167/90
[2021-09-15 05:06] LABS: Basophils # 0.1 10^3/uL (0.0-0.1); Basophils % 0.7 %; Eosinophils # 0.3 10^3/uL (0.0-0.8); Eosinophils % 2.4 %; Hematocrit 39.1 % (42.0-52.0); Hemoglobin 12.7 g/dL (11.7-16.6); Lymphocytes # 1.4 10^3/uL (0.8-4.8); Lymphocytes % 13.5 %; Mean Corpuscular HGB Conc 32.5 g/dL (30.0-36.0); Mean Corpuscular Hemoglobin 29.6 pg (28.0-34.0); Mean Corpuscular Volume 91.1 fl (80-94); Mean Platelet Volume 10.2 fL (7.4-10.4); Monocytes % 9.3 %; Neutrophils # 7.74 10^3/uL (1.8-7.7); Neutrophils % 73.5 %; Nucleated Red Blood Cells % 0 %; Platelet Count 250 10^3/cmm (130-400); Red Blood Count 4.29 10^6/uL (4.1-5.3); White Blood Count 10.5 10^3/uL (4.0-10.0)
[2021-09-15 05:42] LABS: Blood Urea Nitrogen 15 mg/dL (8-23); Calcium 9.3 mg/dL (8.5-10.5); Carbon Dioxide 22 mmol/L (22-29); Chloride 101 mmol/L (98-107); Glucose 126 mg/dL (65-115); Osmolality Calculated 290 mOsm/kg (285-295); Sodium 139 mmol/L (136-145)
[2021-09-15 05:47] LABS: Anion Gap 19.7 (5-19); Potassium 3.7 mmol/L (3.5-5.1)
[2021-09-15 07:01] LABS: Glucose Point of Care 122 mg/dL (70-110)
--- NOTE | 2021-09-15 07:41 | P.PN_ITS ---
Subjective Subjective: Interval history: Urology follow-up: Feeling better. No problems with catheter function overnight. Able to wean off the CBI without increasing blood. Still having some bladder spasms periodically but not severe. Manual irrigation has yielded no more clots. We will plan on a prostate biopsy on 09/17/2021 in my office. Probably cystoscopy at the same time to assess bladder outlet obstruction believed to be secondary to locally invasive prostate cancer. We will discharge with Trimble catheter in place Encouraged a lot of fluids to keep catheter clear Also reviewed continuation of BICALUTAMIDE until he is seen by oncology after the biopsy results are available. I expect that he will be started on LHRH agonist therapy. Encouraged him to call if they have any concerns or questions. Vitals/I&O/Wt Last Vital Signs Temp 98.3 F 09/15/21 03:49 Pulse 93 09/15/21 03:49 Resp 17 09/15/21 03:49 BP 167/90 09/15/21 04:23 Pulse Ox 97 09/15/21 03:49 09/14/21 09/15/21 09/15/21 22:59 06:59 14:59 Intake Total 2009 976.25 / 2986.25 Balance 2009 976.25 / 2986.25 Physical Exam Const: COMMON NORMALS: no acute distress, alert and well nourished GENERAL APPEARANCE: well kempt and well developed ORIENTATION/CONSCIOUSNESS: not confused Neck/C-Spine: COMMON NORMALS: full ROM Resp: COMMON NORMALS: normal respiratory effort EFFORT & INSPECTION: No labored and No Actively coughing : COMMON NORMALS: Yes no CVA tenderness BLADDER/KIDNEY EXAM: Yes catheter in place and Yes no CVA tenderness OTHER: Urine pale yellow. No CBI running. Back/Pelvis: COMMON NORMALS: no CVA tenderness Neuro: COMMON NORMALS: no focal motor deficits SENSORIUM/ORIENTATION: Yes alert Psych: COMMON NORMALS: mental status grossly normal APPEARANCE: Yes grossly normal and Yes well kempt ATTITUDE: Yes calm and Yes engaged Skin: COMMON NORMALS: no rashes or lesions noted and no jaundice GENERAL SKIN EXAM: no rashes or lesions noted Urinary Catheter Management^: Trimble: Cath Placed During This Visit: yes Reason for Continuing Indwelling Catheter: Acute Urinary Retention or Obstruction Urinary Catheter Date of Insertion: 09/11/21 Urinary Catheter Time of Insertion: 03:45 Data : 09/15/21 04:33 09/15/21 04:33 A&P Assessment and plan (1) Pelvic lymphadenopathy: Likely policy services representative of regionally metastasized RESIDENTIAL ASSISTANT Status: Acute (2) Bilateral hydronephrosis: From bladder outlet obstruction Status: Acute (3) Abnormal prostate on physical examination: Clinically consistent with RESIDENTIAL ASSISTANT Status: Acute (4) Acute urinary retention: Preceded by long history of progressive lower urinary tract symptoms times at least 1 year. Maintain catheter discharge Status: Acute (5) Elevated PSA: Plan on prostate biopsy 09/17/2021. Status: Acute Attestations Medical Necessity Statement*: He is no longer requiring CBI. We will plan on outpatient prostate biopsy after holding aspirin for 2 more days. Coding Level of Care Code Acute Regulatory Compliance Coordinator for Luis Angel Whitaker Diagnoses Pelvic lymphadenopathy R59.0 Bilateral hydronephrosis N13.30 Abnormal prostate on physical examination N42.9 Acute urinary retention R33.8 Elevated PSA R97.20
[2021-09-15 07:59] VITALS: BP 143/86; PULSE 94; RESP 18; TEMP 36.8; O2SAT 98
[2021-09-15] MEDS: amlodipine 10 mg Tablet PO (08:39)
[2021-09-15] MEDS: docusate sodium 100 mg Capsule PO (08:39)
[2021-09-15] MEDS: tamsulosin 0.4 mg Capsule PO (08:39)
[2021-09-15] MEDS: metoprolol tartrate 50 mg Tablet PO (08:39)
--- NOTE | 2021-09-15 09:46 | PC.CHAP ---
Pastoral Care Encounter/Spiritual Assessment Type of Contact [] Declined wood setter visit [] Patient/Family/Request visit [] Outpatient visit [] Follow-up visit [] Physician referral [] Code/Alert [x] Routine visit [] Staff referral [] Actively dying [] Patient sleeping [] Family support [] [] Out of room [] Palliative care [] [] Receiving care in room [] Pre-surgical visit [] Trauma [] Long length of stay [] ICU visit [] Other: Relational/Emotional Strength [x] Patient feels connected with others/family/visitors/staff [] Distress [] Loneliness/isolation [] Abandonment Spirituality of Patient [] Person of Mickie [] Attends Christianity of their Mickie [] Believes in Prayer [] Reads Bible or Zoroastrianism materials [] There are Spiritual issues to be addressed Marketing Proposal Specialist Interventions [] Prayer [x] Active listening [x] Non-anxious presence [] Spiritual/emotional support [] Crisis/trauma care [] Spiritual counseling [] Bereavement support [] Provided bereavement packet [] Provided Bible/devotional materials [] Provided toy/stuffed animal, coloring book to patient or family member [] Provided Communion [] Anointing/[place] [] Salvation [x] Completed spiritual assessment [] Other: Impact on Illness or Injury [] Angry [] Fearful [] Anxious [] Often cries [] Exhaustion [] Unable to work [] Unable to attend oriental orthodox [] Unable to walk/stand [] Unable to read [] Unable to drive [] Unable to eat/drink [] Unable to sleep [] Unable to be with family [] Patient intubated [] Other: Summary patient doing better Time spent with patient 10 min
--- NOTE | 2021-09-15 10:16 | P.DS_ITS ---
Discharge Providers Date of Admission: 09/11/21 13:09 Date of Discharge: September 15, 2021 Attending Provider at Admission: Samra Felton Attending Provider at Discharge: Alem Mcgregor MD Diagnoses at Discharge Discharge Diagnosis (1) Pelvic lymphadenopathy: Status: Acute (2) Bilateral hydronephrosis: Status: Acute (3) Abnormal prostate on physical examination: Status: Acute (4) Acute urinary retention: Status: Acute (5) Elevated PSA: Status: Acute Reason for Visit Reason for Visit: Urinary Problems Hospital Course Hospital Course HPI as per Dr. Galloway Alexi Soliz is a 86 year old male who presented to the emergency department with complaints of abdominal discomfort, noting blood in his urine. Slow urine flow has been going on for quite a while but concerns of obstruction in the last 1 to 2 days. No fevers, chills. No vomiting. Pain is better after placement of Trimble catheter. Urology has been consulted secondary to concern of prostate cancer, bilateral hydronephrosis. Hospital Course While inpatient continuous bladder irrigation was performed. Patient still having a little bit of bladder spasm but manual irrigation has yielded no more clots. Plan is for prostate biopsy on 09/17/[address] Gupta's office. At the same time he will be assessed for bladder outlet obstruction. Cystoscopy may be performed. Patient will be discharged with a Trimble catheter in place. He was encouraged to drink a lot of fluids to keep the catheter clear. Also patient was started on bicalutamide. He will be following up with Dr. Gupta in his office as an outpatient. Patient will be discharged today and he is stable. Physical Exam Narrative: EXAM NARRATIVE: General: Alert oriented x3, HEENT: Normocephalic, atraumatic, EOMI, Cardio: Regular rate rhythm, normal S1-S2, no murmurs rubs gallops, Respiratory: Good bilateral air entry, no wheezes no rhonchi appreciated GI: Abdomen soft, nontender, nondistended, bowel sounds + Behavior: Appropriate and cooperative Extremities: no edema, no cyanosis Trimble in place with CBI continuing. Clear yellow urine in Trimble bag today. Urinary Catheter Management^: Trimble: Cath Placed During This Visit: yes Reason for Continuing Indwelling Catheter: Acute Urinary Retention or Obstruction Urinary Catheter Date of Insertion: 09/11/21 Urinary Catheter Time of Insertion: 03:45 Discharge Data Data Completed and Pending: Completed Studies During Hospitalization Category Date Time Status CT kidney stone 7 [id number] Urgent Cat Scan 09/11/21 00:14 Completed Labs from last 24 hours 09/15/21 09/15/21 09/15/21 06:30 04:33 04:33 WBC 10.5 H RBC 4.29 Hgb 12.7 Hct 39.1 L MCV 91.1 MCH 29.6 MCHC 32.5 RDW 13.0 Plt Count 250 MPV 10.2 Neut % (Auto) 73.5 Lymph % (Auto) 13.5 [place] % (Auto) 9.3 Eos % (Auto) 2.4 Baso % (Auto) 0.7 Neut # (Auto) 7.74 H Lymph # (Auto) 1.4 [place] # (Auto) 1.0 H Eos # (Auto) 0.3 Baso # (Auto) 0.1 Nucleated RBC % (a uto) 0 Nucleated RBCs # 0.0 Sodium 139 Potassium 3.7 Chloride 101 Carbon Dioxide 22 Anion Gap 19.7 H BUN 15 Creatinine 1.4 H GFR Calculation Not Reportable Glucose 126 H POC Glucose 122 H Calculated Osmolal ity 290 Calcium 9.3 09/14/21 09/14/21 09/14/21 20:32 17:36 11:33 WBC RBC Hgb Hct MCV MCH MCHC RDW Plt Count MPV Neut % (Auto) Lymph % (Auto) [place] % (Auto) Eos % (Auto) Baso % (Auto) Neut # (Auto) Lymph # (Auto) [place] # (Auto) Eos # (Auto) Baso # (Auto) Nucleated RBC % (a uto) Nucleated RBCs # Sodium Potassium Chloride Carbon Dioxide Anion Gap BUN Creatinine GFR Calculation Glucose POC Glucose 92 147 H 126 H Calculated Osmolal ity Calcium Vitals: Last Vital Signs Temp 98.3 F 09/15/21 07:59 Pulse 94 09/15/21 07:59 Resp 18 09/15/21 07:59 BP 143/86 09/15/21 07:59 Pulse Ox 98 09/15/21 07:59 Discharge Plan Discharge Patient Disposition: Home Condition: Stable Prescriptions: New bicalutamide 50 mg Tablet 50 mg PO DAILY@0800 Qty: 30 RF: 3 diazepam 5 mg tablet 5 mg PO DAILY Qty: 1 RF: 0 hydrocodone-acetaminophen 5-325 mg tablet 1 tab PO Q8H PRN (Reason: prn) Qty: 8 RF: 0 levofloxacin 500 mg tablet 500 mg PO DAILY 4 Days Qty: 4 RF: 0 docusate sodium 100 mg Capsule 100 mg PO BID Qty: 30 RF: 0 tamsulosin 0.4 mg Capsule 0.4 mg PO DAILY Qty: 30 RF: 0 Continued Azo-Uronalin 1 tab PO ONCE RF: 0 metformin 850 mg tablet 850 mg PO BID RF: 0 telmisartan 80 mg tablet See Rx Instructions .ROUTE .COMPLEX RF: 0 metoprolol tartrate 50 mg tablet 50 mg PO BID RF: 0 hydrochlorothiazide 25 mg tablet 25 mg PO QAM RF: 0 finasteride 5 mg tablet 5 mg PO BID RF: 0 [id number]-[id number] Tablet 1 tab PO DAILY RF: 0 PreserVision AREDS-2 250-90-40-1 mg Capsule 1 tab PO BID RF: 0 Held aspirin 81 mg Tablet,Delayed Release (Dr/Ec) 81 mg PO QAM RF: 0 Hold Instructions: Resume on 09/29/21. Discharge Orders: Discharge Order (Routine); Ordered 09/15/21 Ordered By: Sincere Gupta Referrals: Sincere Gupta MD [Physician] - 09/17/21 9:45 am (Prostate ultrasound and biopsy Possible cystoscopy) Discharge Diet: Cardiac Discharge Activity: Increase activity as tolerated Patient Instructions: Hydrocodone/Acetaminophen (By mouth) (Vicodin, [place], Lortab), Diazepam (By mouth) (Diazepam Intensol, Valium, [place]-5), Levofloxacin (By mouth) (Levaquin, Levaquin Leva-alla), Tamsulosin (By mouth) (Flomax), Bicalutamide (By mouth) (Casodex), Trimble Catheter Placement and Care (DC), Urinary Leg Bag (GEN), How to Change a Catheter Drainage Bag (DC), Opioid Safety Activity Restrictions/Additional Instructions: UROLOGY instructions: 1. Maintain catheter in the bladder for now. Can use leg bag or night bag per your choice. 2. We will plan on prostate biopsy Wednesday. 3. Prostate biopsy preparation: -Take 1 pain medication and the Valium 1 hour before procedure -Start the antibiotic (LEVOFLOXIN) 1 a day, beginning the day before the biopsy (09/16/2021) -Perform a fleets enema to clean the stool out of the rectum 2 hours before the biopsy is scheduled. -Please call my office at [phone] if you have any questions. 4. New medications include the BICALUTAMIDE as a treatment for prostate cancer,, antibiotics for the biopsy, 1 Valium pill for the biopsy, and hydrocodone both for bladder pain as well as 1 to take 1 hour before the biopsy Discharge Attestations Time Spent in Discharge Care*: less than 30 min Quality Metrics Clinical Quality Measures During this hospital stay, did patient experience: None Coding Level of Care Code Acute Chg FW DC note Diagnoses Pelvic lymphadenopathy R59.0 Bilateral hydronephrosis N13.30 Abnormal prostate on physical examination N42.9 Acute urinary retention R33.8 Elevated PSA R97.20
[2021-09-15 12:00] VITALS: BP 125/82; PULSE 97; RESP 17; TEMP 36.8; O2SAT 97
[2021-09-15 12:02] LABS: Glucose Point of Care 136 mg/dL (70-110)
--- NOTE | 2021-09-15 14:31 | PC.NURSE ---
Called [employer] and set up transportation for patient to be taken home. Ride set up with David at [employer]. Per David, ride will cost $20.00. patient said he is okay to pay that.
[2021-09-15 14:36] VITALS: BP 125/82; PULSE 97; RESP 17; TEMP 36.8; O2SAT 97
== END 2021-09-15 14:37 | disposition home or self-care (01) | DRG 694 ==
LOC: ER 09-11 05:26 → MEDSURG 09-11 06:05
PROVIDERS: Internal Medicine; Urology; Admitting Provider Hospitalist; Emergency Provider Emergency Medicine; Visit Provider Internal Medicine
DX: N13.30 Unspecified hydronephrosis (principal); I15.2 Hypertension secondary to endocrine disorders; E11.9 Type 2 diabetes mellitus without complications; Z87.891 Personal history of nicotine dependence; N40.1 Benign prostatic hyperplasia with lower urinary tract symptoms; R33.8 Other retention of urine; R59.0 Localized enlarged lymph nodes; R31.0 Gross hematuria; R97.20 Elevated prostate specific antigen [PSA]; N32.89 Other specified disorders of bladder; Z79.84 Long term (current) use of oral hypoglycemic drugs; N17.9 Acute kidney failure, unspecified
CPT/HCPCS: 36415; 36416; 51702; 51798; 74176; 80048; 80053; 81001; 82962; 83735; 84153; 85025; 87086; 96372; 96374; 96375; 96376; 99285; G0378; J0696; J1170; J1815; J1885; J1980; J2270; J3010; J7030; J8999

== ENCOUNTER → 2021-09-17 11:36 | Outpatient (BNVA) | payer MEDICARE, SELFPAY | PROVIDERS: PCP Nurse Practitioner Family; Visit Provider Urology | DX: R97.20 Elevated prostate specific antigen [PSA] (principal) | CPT/HCPCS: 88305 ==

== ENCOUNTER 2021-10-01 07:42 | Outpatient (CLI) | payer MEDICARE, SELFPAY ==
--- NOTE | 2021-10-01 14:49 | ONC CON_ITS ---
Dr. Ackerman New Patient Note Patient: Alexi Soliz Unit #: [id number]: [id number] Dicatated By: Cisco Ackerman M.D.Date of Visit: Oct 01, 2021 Onc MED New Patient/Consult Referring Physician: Dr. Sincere Gupta M.D. Chief Complaint: Prostate cancer. 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 On 09/11/2021 he was admitted to the hospital after presenting to the emergency room with abdominal pain, difficulty voiding, and hematuria. On evaluation, his creatinine was elevated at 1.9 mg/dL. Noncontrast CT of the abdomen/pelvis showed enlarged heterogeneous prostate gland with associated bilateral hydroureteronephrosis to the level of the urinary bladder, left greater than right. There were multiple enlarged retroperitoneal, pelvic, and iliac chain lymph nodes. He improved clinically with IV fluids and indwelling Trimble catheter. His further laboratory evaluation has included PSA level which was significantly elevated at 86.300 ng/mL. During the hospitalization he was started on tamsulosin 0.4 mg daily, and at discharge on 09/15/2021 he also began treatment with bicalutamide 50 mg daily. He had outpatient follow-up with Dr. Gupta on 09/17/2021. His TRUS/biopsy showed prostatic adenocarcinoma, Agus score 5+5=10 involving all of the submitted cores including the right apex, right lateral apex, right lateral mid gland, right lateral base, right base, left base, left lateral base, left lateral apex, and left apex. He is seen now for further management. He is feeling pretty good now. Within the past 2 to 3 days his bladder function is pretty much recovered to normal. His abdominal pain has resolved, and he has had no further hematuria. His energy also is back to normal. ECOG score is 0. His appetite is good, but his weight is down about 15 pounds. He does not have fever, night sweats, or hot flashes. He has some sinus congestion and he occasionally has cough. He does not complain of shortness of breath or chest pain. He has not been having nausea. He does have some acid reflux, but it is managed adequately with Tums. Bowel function has been okay. He has some joint pain, mainly in his knees and legs. He does not complain of headache or dizziness. He reports having numbness occasionally. Past Medical History: His medical history includes hypertension and type II diabetes. Past Surgical History: He underwent TRUSP/biopsy on 09/17/2021. His other surgical/procedural history includes appendectomy, bilateral cataract excisions, and cholecystectomy. Medications: Aspirin 81 1 Tablet (of 81 mg) Tablet, enteric coated Oral every am, Bicalutamide 1 Tablet (of 50 mg) Oral every am, Colace 1 Capsule (of 100 mg) Oral b.i.d., hydroCHLOROthiazide 1 Tablet (of 25 mg) Oral every am, metFORMIN HCl 1 Tablet (of 850 mg) Oral b.i.d., Metoprolol Tartrate 1 Tablet (of 50 mg) Oral b.i.d., Tamsulosin HCl 1 Tablet (of 0.4 mg) Capsule Oral daily, Telmisartan 1.5 Tablet (of 20 mg) Oral daily Allergies: No Known Allergies. Social History: Mr. Soliz is and he is retired. He smoked in the past, but only for short time while he was a teenager. He currently does not drink alcohol. He used to drink socially. Family History: Mr. Soliz's mother at age 89: stroke. Mr. Soliz's father at age 87: stroke. Both parents of stroke, father at age 79 and mother at age 89. Two sons have diabetes. Review Of Symptoms: Constitutional - He feels good generally. His energy is back to normal, and he has normal activity. He has good appetite now, but his weight is down about 15 pounds. He does not have fever, night sweats, or hot flashes. ECOG score is 0, Eyes - No change in vision, ENMT - No hearing loss or tinnitus. He has sinus congestion/drainage. No mouth sores. No sore throat or difficulty swallowing, Hematologic/Lymphatic - No abnormal bruising or bleeding, Respiratory - No shortness of breath. He occasionally has cough. No pleuritic pain or hemoptysis, Cardiovascular - No angina pain. No palpitations, Gastrointestinal - No nausea or vomiting. He has acid reflux. No diarrhea or constipation. No blood in the stool or black stools, Genitourinary (M) - He was having difficulty voiding. He had difficulty controlling his bladder initially after the Trimble catheter was removed. For the past 2 to 3 days he has been voiding normally again. He has not had any recurrence of blood in the urine, Musculoskeletal - He has some joint pain, mainly in his knees and legs, Integumentary - No skin rash or other skin changes, Neurologic - No headache or dizziness. He occasionally has numbness. No other focal neurologic symptoms, Psychiatric - No anxiety or depression. No insomnia. Vital Signs: Performed on Oct 01, 2021 08:54: 1, 0, 31.39 (HIGH), 2.02 sq.m, 67 in, 98 %, 80 /min, 18 /min, 191/111 mm(hg) (HIGH), 97.4 F (LOW), and 200.4 lbs (HIGH). Physical Examination: Constitutional - He appears to be in good general health, Eyes - Sclerae nonicteric. Conjunctivae clear, ENMT - No lesions noted in the oral cavity, Neck - No mass or thyromegaly, Hematologic/Lymphatic - No cervical, clavicular, or axillary adenopathy, Respiratory - Lungs are clear with good air movement bilaterally, Cardiovascular - Heart rhythm is regular with some premature beats. There is a II/ systolic murmur. There is no gallop or rub noted, Abdomen - Soft and non-tender. Liver and spleen are not enlarged. There is no abdominal mass or ascites noted and there is no inguinal adenopathy, Back/Spine - No spine or CVA tenderness noted, Extremities - No edema. Dorsalis pedis pulses are palpable bilaterally, Integumentary - No rashes. No suspicious skin lesions noted, Neurologic - No focal neurologic deficits noted. Problem List: 1. High-grade prostatic adenocarcinoma (Al[place] score 5+5=10), by clinical evaluation stage IVB (T2c, N1, M1a). 2. He had evidence of bladder outlet obstruction with bilateral hydronephrosis and acute renal injury at initial presentation on 09/11/2021. 3. Hypertension. 4. Type 2 diabetes. 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 He had evidence of bladder outlet obstruction with bilateral hydronephrosis and acute renal injury at initial presentation on 09/11/2021. The diagnosis was confirmed by TRUS/biopsy on 09/17/2021. Baseline PSA was 86.300. He had clinical improvement with initial treatment which included IV fluids, indwelling Trimble catheter, and tamsulosin. He also then started antiandrogen therapy with bicalutamide [address] findings and the pathology results reviewed with the patient and his family, and we discussed the clinical implications. He has a very high-grade prostate cancer which is locally advanced and metastatic to regional and nonregional lymph nodes. As such, his disease is inoperable and incurable. The disease, though, is likely to respond to androgen deprivation therapy, and he will be started on treatment with Zoladex 10.8 mg, subject to verification of insurance coverage. With high-grade disease, he also will be recommended to continue antiandrogen therapy. I will plan to transition him to one of the newer agents, most likely enzalutamide, but that also will be subject to verification of insurance coverage. He is advised that the treatment will likely cause hot flashes and that it also may cause fatigue and/or mood swings. His PSA level will be monitored monthly. He will be scheduled for a follow-up visit in 3 months. Signed By: Cisco Ackerman M.D. <<Signature on File>>
== END 2021-10-01 07:43 | disposition home or self-care (01) ==
PROVIDERS: PCP Nurse Practitioner Family; Visit Provider Internal Medicine Medical Oncology
DX: C61 Malignant neoplasm of prostate (principal); N32.0 Bladder-neck obstruction; N13.1 Hydronephrosis with ureteral stricture, not elsewhere classified; I10 Essential (primary) hypertension; E11.9 Type 2 diabetes mellitus without complications; Z79.899 Other long term (current) drug therapy; Z79.818 Long term (current) use of other agents affecting estrogen receptors and estrogen levels
CPT/HCPCS: 90471; 90670; 90686; 99205

== ENCOUNTER 2021-10-07 06:36 | Outpatient (CLI) | payer MEDICARE, SELFPAY ==
[2021-10-07] MEDS: lidocaine 1% INJ 20 mL INJECTION (12:20)
[2021-10-07] MEDS: goserelin acetate 10.8 mg Implant SUBCUT (12:45)
== END 2021-10-07 06:37 | disposition home or self-care (01) ==
PROVIDERS: PCP Nurse Practitioner Family; Visit Provider Internal Medicine Medical Oncology
DX: C61 Malignant neoplasm of prostate (principal); Z79.818 Long term (current) use of other agents affecting estrogen receptors and estrogen levels
CPT/HCPCS: 96402; J9202

== ENCOUNTER 2021-10-31 10:22 | Outpatient (CLI) | payer MEDICARE, SELFPAY ==
[2021-10-31 11:21] LABS: Alanine Aminotransferase 16 U/L (0-41); Albumin Level 4.6 g/dL (3.5-5.2); Alkaline Phosphatase 80 IU/L (40-130); Anion Gap 18.4 (5-19); Aspartate Amino Transferase 21 U/L (0-40); Blood Urea Nitrogen 29 mg/dL (8-23); Calcium 9.2 mg/dL (8.5-10.5); Carbon Dioxide 28 mmol/L (22-29); Chloride 97 mmol/L (98-107); Glucose 118 mg/dL (65-115); Osmolality Calculated 297 mOsm/kg (285-295); Potassium 3.4 mmol/L (3.5-5.1); Sodium 140 mmol/L (136-145); Total Bilirubin 0.8 mg/dL (0.15-1.2); Total Protein 7.6 g/dL (6.6-8.7)
== END 2021-10-31 10:23 | disposition home or self-care (01) ==
LOC: ONCMED 10:24
PROVIDERS: PCP Nurse Practitioner Family; Visit Provider Internal Medicine Medical Oncology
DX: C61 Malignant neoplasm of prostate (principal)
CPT/HCPCS: 36415; 80053

== ENCOUNTER 2021-11-04 06:27 | Outpatient (CLI) | payer MEDICARE, SELFPAY ==
[2021-11-04 15:10] LABS: Basophils # 0.1 10^3/uL (0.0-0.1); Basophils % 0.8 %; Eosinophils # 0.5 10^3/uL (0.0-0.8); Eosinophils % 6.4 %; Hematocrit 39.7 % (42.0-52.0); Hemoglobin 13.3 g/dL (11.7-16.6); Lymphocytes # 2.1 10^3/uL (0.8-4.8); Lymphocytes % 27.6 %; Mean Corpuscular HGB Conc 33.5 g/dL (30.0-36.0); Mean Corpuscular Hemoglobin 29.6 pg (28.0-34.0); Mean Corpuscular Volume 88.2 fl (80-94); Mean Platelet Volume 9.6 fL (7.4-10.4); Monocytes # 0.6 10^3/uL (0.2-0.9); Monocytes % 8.1 %; Neutrophils % 56.7 %; Nucleated Red Blood Cells % 0 %; Platelet Count 294 10^3/cmm (130-400); Red Cell Distribution Width 12.9 % (12.1-15.1); White Blood Count 7.8 10^3/uL (4.0-10.0)
== END 2021-11-04 06:28 | disposition home or self-care (01) ==
LOC: ONCMED 06:28
PROVIDERS: PCP Nurse Practitioner Family; Visit Provider Nurse Practitioner Family
DX: C61 Malignant neoplasm of prostate (principal); N32.0 Bladder-neck obstruction; N13.1 Hydronephrosis with ureteral stricture, not elsewhere classified; N28.89 Other specified disorders of kidney and ureter; I10 Essential (primary) hypertension; E11.9 Type 2 diabetes mellitus without complications; Z79.818 Long term (current) use of other agents affecting estrogen receptors and estrogen levels; Z79.899 Other long term (current) drug therapy
CPT/HCPCS: 36415; 84153; 85025; 99214

== ENCOUNTER → 2021-11-13 08:35 | Outpatient (BNVA) | payer MEDICARE, SELFPAY | PROVIDERS: PCP Nurse Practitioner Family; Visit Provider Urology | DX: R33.8 Other retention of urine (principal); N30.00 Acute cystitis without hematuria | CPT/HCPCS: 81003; 87077; 87086; 87184 ==

== ENCOUNTER 2021-11-18 09:54 | Outpatient (CLI) | payer MEDICARE, SELFPAY ==
[2021-11-18 10:50] LABS: Basophils # 0.1 10^3/uL (0.0-0.1); Basophils % 0.9 %; Eosinophils # 0.4 10^3/uL (0.0-0.8); Eosinophils % 4.1 %; Hematocrit 38.3 % (42.0-52.0); Hemoglobin 12.9 g/dL (11.7-16.6); Lymphocytes # 1.8 10^3/uL (0.8-4.8); Lymphocytes % 19.7 %; Mean Corpuscular HGB Conc 33.7 g/dL (30.0-36.0); Mean Corpuscular Hemoglobin 29.3 pg (28.0-34.0); Mean Corpuscular Volume 86.8 fl (80-94); Monocytes # 0.7 10^3/uL (0.2-0.9); Monocytes % 7.4 %; Neutrophils # 6.16 10^3/uL (1.8-7.7); Neutrophils % 66.5 %; Nucleated Red Blood Cells % 0 %; Platelet Count 410 10^3/cmm (130-400); Red Blood Count 4.41 10^6/uL (4.1-5.3); Red Cell Distribution Width 12.6 % (12.1-15.1); White Blood Count 9.3 10^3/uL (4.0-10.0)
[2021-11-18 11:06] LABS: Alanine Aminotransferase 17 U/L (0-41); Albumin Level 4.2 g/dL (3.5-5.2); Alkaline Phosphatase 129 IU/L (40-130); Blood Urea Nitrogen 18 mg/dL (8-23); Calcium 9.4 mg/dL (8.5-10.5); Carbon Dioxide 23 mmol/L (22-29); Chloride 97 mmol/L (98-107); Globulin 3.9 g/dL (1.3-4.6); Glucose 157 mg/dL (65-115); Osmolality Calculated 293 mOsm/kg (285-295); Sodium 139 mmol/L (136-145); Total Bilirubin 0.5 mg/dL (0.15-1.2); Total Protein 8.1 g/dL (6.6-8.7)
[2021-11-18 11:11] LABS: Aspartate Amino Transferase 17 U/L (0-40)
== END 2021-11-18 09:55 | disposition home or self-care (01) ==
LOC: ONCMED 10:05
PROVIDERS: PCP Nurse Practitioner Family; Visit Provider Internal Medicine Medical Oncology
DX: C61 Malignant neoplasm of prostate (principal)
CPT/HCPCS: 36415; 80053; 85025; 99214

== ENCOUNTER 2021-12-01 14:46 | Outpatient (CLI) | payer MEDICARE, SELFPAY ==
[2021-12-01 15:35] LABS: Basophils # 0.1 10^3/uL (0.0-0.1); Basophils % 1.4 %; Eosinophils # 0.7 10^3/uL (0.0-0.8); Eosinophils % 9.4 %; Hematocrit 39.5 % (42.0-52.0); Hemoglobin 13.5 g/dL (11.7-16.6); Lymphocytes # 2.4 10^3/uL (0.8-4.8); Lymphocytes % 34.2 %; Mean Corpuscular HGB Conc 34.2 g/dL (30.0-36.0); Mean Corpuscular Hemoglobin 29.5 pg (28.0-34.0); Mean Corpuscular Volume 86.2 fl (80-94); Mean Platelet Volume 10.1 fL (7.4-10.4); Monocytes # 0.7 10^3/uL (0.2-0.9); Monocytes % 9.7 %; Neutrophils # 3.09 10^3/uL (1.8-7.7); Neutrophils % 44.6 %; Nucleated Red Blood Cells % 0 %; Platelet Count 321 10^3/cmm (130-400); Red Blood Count 4.58 10^6/uL (4.1-5.3); White Blood Count 6.9 10^3/uL (4.0-10.0)
[2021-12-01 15:50] LABS: Alanine Aminotransferase 12 U/L (0-41); Albumin Level 4.5 g/dL (3.5-5.2); Alkaline Phosphatase 88 IU/L (40-130); Anion Gap 20.5 (5-19); Aspartate Amino Transferase 14 U/L (0-40); Blood Urea Nitrogen 20 mg/dL (8-23); Calcium 9.3 mg/dL (8.5-10.5); Carbon Dioxide 26 mmol/L (22-29); Chloride 93 mmol/L (98-107); Globulin 3.7 g/dL (1.3-4.6); Glucose 101 mg/dL (65-115); Osmolality Calculated 285 mOsm/kg (285-295); Potassium 3.5 mmol/L (3.5-5.1); Sodium 136 mmol/L (136-145); Total Bilirubin 0.6 mg/dL (0.15-1.2); Total Protein 8.2 g/dL (6.6-8.7)
[2021-12-01 16:10] LABS: Slide Review Slide Review Perform
== END 2021-12-01 14:47 | disposition home or self-care (01) ==
LOC: ONCMED 14:50
PROVIDERS: PCP Nurse Practitioner Family; Visit Provider Internal Medicine Medical Oncology
DX: C61 Malignant neoplasm of prostate (principal)
CPT/HCPCS: 36415; 80053; 85025

== ENCOUNTER 2022-01-08 12:58 | Outpatient (CLI) | payer MEDICARE, SELFPAY ==
[2022-01-08 14:18] LABS: Basophils # 0.1 10^3/uL (0.0-0.1); Eosinophils # 0.4 10^3/uL (0.0-0.8); Eosinophils % 6.2 %; Hematocrit 38.1 % (42.0-52.0); Lymphocytes # 2.4 10^3/uL (0.8-4.8); Lymphocytes % 34.1 %; Mean Corpuscular HGB Conc 34.1 g/dL (30.0-36.0); Mean Corpuscular Hemoglobin 29.7 pg (28.0-34.0); Mean Corpuscular Volume 87.2 fl (80-94); Mean Platelet Volume 10.2 fL (7.4-10.4); Monocytes # 0.8 10^3/uL (0.2-0.9); Monocytes % 10.7 %; Neutrophils # 3.35 10^3/uL (1.8-7.7); Neutrophils % 47.4 %; Nucleated Red Blood Cells % 0 %; Platelet Count 268 10^3/cmm (130-400); Red Blood Count 4.37 10^6/uL (4.1-5.3); Red Cell Distribution Width 13.3 % (12.1-15.1); White Blood Count 7.1 10^3/uL (4.0-10.0)
[2022-01-08 14:54] LABS: Alanine Aminotransferase 13 U/L (0-41); Albumin Level 4.7 g/dL (3.5-5.2); Alkaline Phosphatase 72 IU/L (40-130); Blood Urea Nitrogen 25 mg/dL (8-23); Calcium 10.3 mg/dL (8.5-10.5); Carbon Dioxide 23 mmol/L (22-29); Globulin 3.5 g/dL (1.3-4.6); Glucose 87 mg/dL (65-115); Total Bilirubin 0.6 mg/dL (0.15-1.2); Total Protein 8.2 g/dL (6.6-8.7)
[2022-01-08 14:55] LABS: Potassium 3.3 mmol/L (3.5-5.1)
[2022-01-08 14:56] LABS: Aspartate Amino Transferase 17 U/L (0-40)
[2022-01-08 15:14] LABS: Anion Gap 21.3 (5-19); Chloride 93 mmol/L (98-107); Osmolality Calculated 282 mOsm/kg (285-295); Sodium 134 mmol/L (136-145)
[2022-01-08 15:16] LABS: Testosterone Total 14.4 ng/dL (193-740)
[2022-01-08] MEDS: lidocaine 1% INJ 20 mL INJECTION (15:38)
[2022-01-08] MEDS: goserelin acetate 10.8 mg Implant SUBCUT (15:50)
--- NOTE | 2022-01-11 11:52 | ONC FU_ITS ---
Dr. Ackerman Patient Follow-Up Note Patient: Alexi Soliz Unit #: [id number]: 1935 Dicatated By: Cisco Ackerman M.D.Date of Visit:Jan 08, 2022 Onc Med Follow-up/Prog Note Chief Complaint: Prostate cancer. [employer] education. 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 On 09/11/2021 he was admitted to the hospital after presenting to the emergency room with abdominal pain, difficulty voiding, and hematuria. On evaluation, his creatinine was elevated at 1.9 mg/dL. Noncontrast CT of the abdomen/pelvis showed enlarged heterogeneous prostate gland with associated bilateral hydroureteronephrosis to the level of the urinary bladder, left greater than right. There were multiple enlarged retroperitoneal, pelvic, and iliac chain lymph nodes. He improved clinixtandically with IV fluids and indwelling Trimble catheter. His further laboratory evaluation has included PSA level which was significantly elevated at 86.300 ng/mL. During the hospitalization he was started on tamsulosin 0.4 mg daily, and at discharge on 09/15/2021 he also began treatment with bicalutamide 50 mg daily. He had outpatient follow-up with Dr. Gupta on 09/17/2021. His TRUS/biopsy showed prostatic adenocarcinoma, Girard score 5+5=10 involving all of the submitted cores including the right apex, right lateral apex, right lateral mid gland, right lateral base, right base, left base, left lateral base, left lateral apex, and left apex. I had seen him initially on 10/01/2021 and he then began androgen deprivation therapy with Zoladex 10.8 mg on 10/07/2021. During subsequent follow-up, his antiandrogen therapy was transitioned to enzalutamide 160 mg daily. As of 11/04/2021 there was a decrease in the PSA level to 9.56 ng/mL. His other medical illnesses have been limited to hypertension and type 2 diabetes. He has only a minimal smoking history, just for short time as a teenager. He is seen for a follow-up visit. He has been feeling pretty good generally, though his blood pressure recently has been significantly elevated. As of Wednesday his metoprolol dosage was increased to 75 mg twice daily. He has pretty good energy, though he does do some napping. His ECOG score is 1. Appetite is somewhat variable. His weight is up a couple of pounds. He has not had fever or night sweats. He has just a little bit of hot flashes. He has been having itching, and he also complains of having dry skin. He has allergy related sinus/throat symptoms and he has occasional cough. He does not complain of shortness of breath. He has some chest discomfort, which he thinks is related to acid reflux. He has not been having nausea. His stools are sometimes soft, but he has not been having diarrhea. Bladder function has improved significantly. He has joint pain, especially in the knees, shoulders, and hands, but that has been going on for a long time. He does not complain of headache. He occasionally has dizziness. He has no numbness/paresthesia or other focal neurologic symptoms. Medications: Aspirin 81 1 Tablet (of 81 mg) Tablet, enteric coated Oral every am, Bicalutamide 1 Tablet (of 50 mg) Oral every am, Colace 1 Capsule (of 100 mg) Oral b.i.d., hydroCHLOROthiazide 1 Tablet (of 25 mg) Oral every am, metFORMIN HCl 1 Tablet (of 850 mg) Oral b.i.d., Metoprolol Tartrate 1 Tablet (of 75 mg) Oral b.i.d., Tamsulosin HCl 1 Tablet (of 0.4 mg) Capsule Oral daily, Telmisartan 1.5 Tablet (of 20 mg) Oral daily Allergies: No Known Allergies. Vital Signs: Performed on Jan 08, 2022 15:45 Height - 67.00 in BP - 208/104 mm(hg) (HIGH) Performed on Jan 08, 2022 15:45 Height - 67.00 in BP - 215/113 mm(hg) (HIGH) Performed on Jan 08, 2022 15:44 Height - 67.00 in Weight - 202.8 lbs (HIGH) BSA - 2.03 sq.m BMI - 31.76 (HIGH) Temperature - 97.7 F (LOW) Pulse - 78 /min Respiration - 16 /min BP - 234/118 mm(hg) (HIGH) O2 Sat - 97 % Pain - 0 Fatigue - 0 Physical Examination: Constitutional - He looks pretty good generally, Eyes - Sclerae nonicteric. Conjunctivae clear, ENMT - No lesions noted in the oral cavity, Hematologic/Lymphatic - No cervical, clavicular, or axillary adenopathy, Respiratory - Lungs are clear with good air movement bilaterally, Cardiovascular - Heart rhythm is regular. There is a II/ systolic murmur. There is no gallop or rub noted, Abdomen - Soft. Liver and spleen are not enlarged. There is no abdominal mass or ascites noted and there is no inguinal adenopathy, Extremities - No edema, Neurologic - No focal neurologic deficits noted. Lab/Imaging: Test performed on Jan 08, 2022 13:51 Sodium 134 mmol/L Testosterone, Total 14.4 ng/dL Potassium 3.3 mmol/L Chloride 93 mmol/L CO2 23 mmol/L Anion Gap 21.3 BUN 25 mg/dL Creatinine 1.3 mg/dL Cr Clearance (Est) 54.05 mL/min Glucose 87 mg/dL Osmolality - Calculated 282 mOsm/kg Calcium 10.3 mg/dL Protein, Total 8.2 g/dL Albumin 4.7 g/dL Globulin 3.5 g/dL Bilirubin, Total 0.6 mg/dL ALT (SGPT) 13 U/L AST (SGOT) 17 U/L Alkaline Phosphatase 72 IU/L WBC 7.1 10 3/uL RBC 4.37 10 6/uL HGB 13.0 g/dL HCT 38.1 % MCV 87.2 fl MCH 29.7 pg MCHC 34.1 g/dL RDW 13.3 % Platelet Count 268 10 3/cmm MPV 10.2 fL Neutrophils 3.35 10 3/uL Lymphocytes 2.4 10 3/uL Monocytes 0.8 10 3/uL Eosinophils 0.4 10 3/uL Basophils 0.1 10 3/uL Neutrophil % 47.4 % Lymphocyte % 34.1 % Monocyte % 10.7 % Eosinophil % 6.2 % Basophils % 1.0 % NRBC % 0 % PSA 1.160 ng/mL Problem List: 1. High-grade prostatic adenocarcinoma (Girard score 5+5=10), by clinical evaluation stage IVB (T2c, N1, M1a). 2. He had evidence of bladder outlet obstruction with bilateral hydronephrosis and acute renal injury at initial presentation on 09/11/2021. 3. Hypertension. 4. Type 2 diabetes. Problems Addressed with this Encounter and Plan: 1. Patient with high-grade prostatic adenocarcinoma (Girard score 5+5=10), by clinical evaluation stage IVB (T2c, N1, M1a). He had evidence of bladder outlet obstruction with bilateral hydronephrosis and acute renal injury at initial presentation on 09/11/2021. The diagnosis was confirmed by TRUS/biopsy on 09/17/2021. Baseline PSA was 86.300. He had clinical improvement with initial treatment which included IV fluids, indwelling Trimble catheter, and tamsulosin. He also then started antiandrogen therapy with bicalutamide 50 mg daily. As of 10/07/2021 he began androgen deprivation therapy with Zoladex 10.8 mg, and during subsequent follow-up his antiandrogen was transitioned to enzalutamide 160 mg daily. He has been showing very good response both clinically and by PSA level. Thus far he has been tolerating treatment well. He will be given Zoladex 10.8 mg today, and he will continue enzalutamide 160 mg daily. He will be scheduled for a follow-up visit in 3 months. 2. He has significantly elevated blood pressure despite the recent increase in his metoprolol dosage. This information will be forwarded to his primary care provider for further management. Signed By: Cisco Ackerman M.D. <<Signature on File>>
== END 2022-01-08 12:59 | disposition home or self-care (01) ==
LOC: ONCMED 13:04
PROVIDERS: PCP Nurse Practitioner Family; Visit Provider Internal Medicine Medical Oncology
DX: C61 Malignant neoplasm of prostate (principal); N32.0 Bladder-neck obstruction; N13.1 Hydronephrosis with ureteral stricture, not elsewhere classified; I10 Essential (primary) hypertension; E11.9 Type 2 diabetes mellitus without complications; Z79.818 Long term (current) use of other agents affecting estrogen receptors and estrogen levels; Z79.899 Other long term (current) drug therapy
CPT/HCPCS: 80053; 84153; 84403; 85025; 96372; 96402; 99215; J9202

== ENCOUNTER 2022-01-13 21:29 | Emergency (ER) | payer MEDICARE, SELFPAY ==
--- NOTE | 2022-01-13 21:31 | CTR_ITS ---
PROCEDURE INFORMATION: Exam: CT Head Without Contrast Exam date and time: 01/13/2022 9:31 PM Age: 86 years old Clinical indication: Speech disturbance; Additional info: Symptoms of acute stroke TECHNIQUE: Imaging protocol: Computed tomography of the head without contrast. Radiation optimization: All CT scans at this facility use at least one of these dose optimization techniques: automated exposure control; mA and/or kV adjustment per patient size (includes targeted exams where dose is matched to clinical indication); or iterative reconstruction. Other technique: STROKE PROTOCOL was implemented. COMPARISON: No relevant prior studies available. RADIATION DOSE METRICS: Total DLP (mGy-cm): 815.06 FINDINGS: Brain: 5.1 x 4.9 x 4.0 cm hematoma in the left basal ganglia with extension to the zamora radiata most consistent with hypertensive bleed. 7 mm midline shift to the right. Cerebral ventricles: Some dissection into the left lateral ventricle with blood in the anterior horn left ventricle, dependent portion of the occipital horn and possibly in the 3rd ventricle. Paranasal sinuses: Mild bilateral ethmoid sinus disease. Mastoid air cells: Visualized mastoid air cells are well aerated. Vasculature: Severe calcified intracranial atherosclerotic vessel disease. Bones/joints: Unremarkable. No acute fracture. Soft tissues: Unremarkable. Other findings: Examination is limited secondary to motion artifact. CT/CT head wo con* [id number] IMPRESSION: 1. 5.1 x 4.9 x 4.0 cm hematoma in the left basal ganglia with extension to the zamora radiata most consistent with hypertensive bleed. 2. Some dissection into the left lateral ventricle with blood in the anterior horn left ventricle, dependent portion of the occipital horn and possibly in the 3rd ventricle. 3. Mild bilateral ethmoid sinus disease. 4. 7 mm midline shift to the right. ASSESSMENT: ASPECTS ([place] Stroke Program Early CT Score) is 10.
[2022-01-13 21:44] LABS: Basophils # 0.1 10^3/uL (0.0-0.1); Basophils % 1.1 %; Eosinophils # 0.4 10^3/uL (0.0-0.8); Eosinophils % 5.6 %; Hematocrit 34.1 % (42.0-52.0); Hemoglobin 11.6 g/dL (11.7-16.6); Lymphocytes # 1.9 10^3/uL (0.8-4.8); Lymphocytes % 30.1 %; Mean Corpuscular Hemoglobin 29.9 pg (28.0-34.0); Mean Corpuscular Volume 87.9 fl (80-94); Mean Platelet Volume 10.3 fL (7.4-10.4); Monocytes # 0.8 10^3/uL (0.2-0.9); Monocytes % 12.2 %; Neutrophils # 3.12 10^3/uL (1.8-7.7); Neutrophils % 49.9 %; Nucleated Red Blood Cells % 0 %; Platelet Count 232 10^3/cmm (130-400); Red Blood Count 3.88 10^6/uL (4.1-5.3); Red Cell Distribution Width 13.3 % (12.1-15.1); White Blood Count 6.3 10^3/uL (4.0-10.0)
[2022-01-13 21:58] LABS: Partial Thromboplastin Time 32.1 SECONDS (23.9-36.7)
--- NOTE | 2022-01-13 22:03 | ED_ITS ---
HPI - Neuro Symptoms/Deficit General: Stated Complaint: STROKE Time Seen by Provider: 01/13/22 21:36 Limitations: altered mental status and other History of Present Illness: Mr. Soliz is an 86-year-old gentleman with significant past medical history of diabetes, hypertension, hyperlipidemia, prostate cancer who presents emergency department due to altered mental status as a stroke alert. Patient was last known normal at approximately 2100 when he had sudden onset of confusion and difficulty ambulating. He was previously at his baseline health today. Per family he has never had anything similar and is not on blood thinners. History is otherwise limited by acuity of condition and patient's current mental status. Onset (ago): minute(s) Timing confirmed by: family member History of same: No Severity: severe Context: sudden onset On Anticoagulants: No Review of Systems General: Reports: ROS unobtainable due to medical condition and ROS unobtainable due to mental status PFS ED PFSH: Medical History Central retinal artery occlusion Not confirmed Diabetes mellitus Hypertension associated with diabetes Prostate cancer [place] 5+5, PSA 86, pelvic lymphadenopathy a diagnosis Surgical History History of appendectomy History of cholecystectomy Family History Father , at age 87 Stroke Mother , at age 89 Stroke Social History Alcohol intake: current Alcohol intake frequency: few times a month Marital status: Current occupational status: retired History of recent travel: Yes Physical Exam Const: EXAM LIMITATIONS: altered mental status GENERAL APPEARANCE: ill appearing HENMT: COMMON NORMALS: normocephalic and atraumatic HEAD & SCALP: no rmocephalic and atraumatic OTHER: Sonorous respirations, dentures removed Eye: COMMON NORMALS: conjunctivae normal CONJUNCTIVA: Yes conjunctivae normal SCLERA: sclerae normal Neck/C-Spine: COMMON NORMALS: supple GENERAL: Yes trachea midline Resp: COMMON NORMALS: normal respiratory effort EFFORT & INSPECTION: Yes other (Sonorous) Cardio: COMMON NORMALS: regular rate and regular rhythm RATE: regular rate RHYTHM: regular rhythm GI: COMMON NORMALS: Soft to palpation PALPATION: Yes Soft to palpation and No Tenderness to palpation present (GI) PERCUSSION: normal to percussion Extremity: GENERAL: Yes normal exam except as noted and No edema Neuro: SENSORIUM/ORIENTATION: Yes Orientation impaired and Yes stuporous OTHER: Right-sided flaccid paralysis 0/5, left upper and lower extremity 3/5 Psych: MEMORY/COGNITION: Yes cognition grossly impaired Procedures Intubation Time out performed: Yes sedative: Etomidate Mg Given: 30 paralytic: Succinylcholine Mg Given: 80 Laryngoscope: fiber optic video scope ET Tube Size: 8 ET Tube Uncuffed: No Tube Placement Confirmation: visualized tube passing through cords and equal breath sounds bilaterally Patient Tolerated Procedure: well Intubation Complications: none Course ED course: - Patient was seen and evaluated by me at bedside - Patient placed on cardiac monitors, IV access obtained - Initial evaluation notable for altered mental status, right-sided deficits - Patient immediately brought to CT scanner which revealed a large left-sided intraparenchymal hemorrhage - Discussed with patient's family including severity of patient's condition. After discussion family would like patient intubated and to receive all cares necessary including transfer for neurosurgical evaluation - Patient intubated with 8.0 ETT using etomidate and succs. Post intubation x- ray reviewed and tube in satisfactory position. - Medications ordered for patient's marked hypertension. Additional medications for sedation - Labs and imaging personally interpreted and reviewed by me - Patient accepted as ED to ED emergency transfer to [facility] in [place], Dr. Juarez accepted and discussed case with Dr. Corral who was assisting me. - Given immediate life threat and need for emergent neurosurgical evaluation the patient will be transferred by air. Vital Signs: Vital signs: Vital Signs Temperature 98.1 F 01/13/22 22:57 Pulse Rate 87 01/13/22 22:57 Respiratory Rate 14 01/13/22 22:57 Blood Pressure 175/87 01/13/22 22:57 Pulse Oximetry 100 01/13/22 22:19 MDM - Neuro Symptoms/Deficit Medical Decision Making 86 yo gentleman presenting with strokelike symptoms that started approximately 30 minutes prior to arrival. Patient with marked neurologic deficits and failure to protect airway. CT head with large intraparenchymal hemorrhage. Transferred for neurosurgical evaluation after intubation. Medical Records I reviewed the patient's medical records. Lab Data I reviewed the patient's lab results. : 01/13/22 21:35 01/13/22 21:[address] 01/13/22 21:31 IMPRESSION: 1. 5.1 x 4.9 x 4.0 cm hematoma in the left basal ganglia with extension to the zamora radiata most consistent with hypertensive bleed. 2. Some dissection into the left lateral ventricle with blood in the anterior horn left ventricle, dependent portion of the occipital horn and possibly in the 3rd ventricle. 3. Mild bilateral ethmoid sinus disease. 4. 7 mm midline shift to the right. ASSESSMENT: ASPECTS ([place] Stroke Program Early CT Score) is 10. ADDENDUM: 01/13/223 THIS REPORT CONTAINS FINDINGS THAT MAY BE CRITICAL TO PATIENT CARE. The findings were verbally communicated via telephone conference with RICKIE CORRAL at 10:02 PM VOIP NETWORK TECHNICIAN on 01/13/2022. The findings were acknowledged and understood. Chest X-Ray 01/13/22 22:04 IMPRESSION: 1. Endotracheal tube tip over the distal trachea at the origin of the fabio. 2. Mild nonspecific right perihilar and left mid lung field opacities suggesting possible mild pneumonia. Laboratory Results WBC 6.3 10^3/uL (4.0-10.0) 01/13/22 21:35 RBC 3.88 10^6/uL (4.1-5.3) L 01/13/22 21:35 Hgb 11.6 g/dL (11.7-16.6) L 01/13/22 21:35 Hct 34.1 % (42.0-52.0) L 01/13/22 21:35 MCV 87.9 fl (80-94) 01/13/22 21:35 MCH 29.9 pg (28.0-34.0) 01/13/22 21:35 MCHC 34.0 g/dL (30.0-36.0) 01/13/22 21:35 RDW 13.3 % (12.1-15.1) 01/13/22 21:35 Plt Count 232 10^3/cmm (130-400) 01/13/22 21:35 MPV 10.3 fL (7.4-10.4) 01/13/22 21:35 Neut % (Auto) 49.9 % 01/13/22 21:35 Lymph % (Auto) 30.1 % 01/13/22 21:35 Simpson % (Auto) 12.2 % 01/13/22 21:35 Eos % (Auto) 5.6 % 01/13/22 21:35 Baso % (Auto) 1.1 % 01/13/22 21:35 Neut # (Auto) 3.12 10^3/uL (1.8-7.7) 01/13/22 21:35 Lymph # (Auto) 1.9 10^3/uL (0.8-4.8) 01/13/22 21:35 Simpson # (Auto) 0.8 10^3/uL (0.2-0.9) 01/13/22 21:35 Eos # (Auto) 0.4 10^3/uL (0.0-0.8) 01/13/22 21:35 Baso # (Auto) 0.1 10^3/uL (0.0-0.1) 01/13/22 21:35 Nucleated RBC % (auto) 0 % 01/13/22 21:35 Nucleated RBCs # 0.0 /100WBC 01/13/22 21:35 PT 13.50 SECONDS (12.1-14.9) 01/13/22 21:35 INR 1.00 (0.8-1.2) 01/13/22 21:35 APTT 32.1 SECONDS (23.9-36.7) 01/13/22 21:35 Sodium 139 mmol/L (136-145) 01/13/22 21:35 Potassium 3.1 mmol/L (3.5-5.1) L 01/13/22 21:35 Chloride 95 mmol/L (98-107) L 01/13/22 21:35 Carbon Dioxide 27 mmol/L (22-29) 01/13/22 21:35 Anion Gap 20.1 (5-19) H 01/13/22 21:35 BUN 21 mg/dL (8-23) 01/13/22 21:35 Creatinine 1.5 mg/dL (0.7-1.2) H 01/13/22 21:35 GFR Calculation Not Reportable 01/13/22 21:35 Glucose 130 mg/dL (65-115) H 01/13/22 21:35 POC Glucose 179 mg/dL (70-110) H 01/13/22 21:48 Calculated Osmolality 293 mOsm/kg (285-295) 01/13/22 21:35 Calcium 8.5 mg/dL (8.5-10.5) 01/13/22 21:35 Total Bilirubin 0.5 mg/dL (0.15-1.2) 01/13/22 21:35 AST 12 U/L (0-40) 01/13/22 21:35 ALT 11 U/L (0-41) 01/13/22 21:35 Alkaline Phosphatase 75 IU/L (40-130) 01/13/22 21:35 Total Protein 7.2 g/dL (6.6-8.7) 01/13/22 21:35 Albumin 4.4 g/dL (3.5-5.2) 01/13/22 21:35 Globulin 2.8 g/dL (1.3-4.6) 01/13/22 21:35 Urine Color Yellow (Yellow) 01/13/22 22:27 Urine Appearance Clear (CLEAR) 01/13/22 22:27 Urine pH 7 (5-7) 01/13/22 22:27 Ur Specific [place] 1.010 (1.005-1.030) 01/13/22: Urine Protein Neg (Negative) 01/13/22 22: Urine Glucose (UA) Trace (Normal) H 01/13/22 22:27 Urine Ketones Negative (Negative) 01/13/22 22:27 Urine Blood Neg (Negative) 01/13/22 22: Urine Nitrate Negative (Negative) 01/13/22: Urine Bilirubin Neg (Negative) 01/13/22 22:27 Urine Urobilinogen Norm mg/dL (Negative) 01/13/22 22: Ur Leukocyte Esterase Negative (Negative) 01/13/22 22: Urine Opiates Screen Negative ng/mL (Negative) 01/13/22: Ur Barbiturates Screen Negative ng/mL (Negative) 01/13/22 22: Ur Phencyclidine Scrn Negative ng/mL (Negative) 01/13/22 22: Ur Amphetamines Screen Negative ng/mL (Negative) 01/13/22: U Benzodiazepines Scrn Negative ng/mL (Negative) 01/13/22 22:27 Urine Cocaine Screen Negative ng/mL (Negative) 01/13/22 22:27 U Marijuana (THC) Screen Negative ng/mL (Negative) 01/13/22 22:27 Critical Care Time Critical Care Time: Critical Care Time: Yes Total Critical Care Time: 38 Attestation: Due to a high probability of clinically significant, possibly life threatening deterioration, the patient required my highest level of attention and preparedness to intervene emergently and I personally spent this critical care time directly and personally managing the patient. This critical care time included obtaining a history; examining the patient; pulse oximetry; ordering and review of laboratory and imaging studies; arranging urgent treatment with development of a management plan; evaluation of patient's response to treatment; frequent reassessment; and, discussions with other providers as applicable. It was exclusive of separately billable procedures. Primary system involved is neuro Discharge Plan Discharge Patient Disposition: Transfer to ED Clinical Impression: Hemorrhagic stroke, Acute alteration in mental status Condition: Stable Prescriptions: No Action Xtandi 40 mg tablet 160 mg PO DAILY 0RF ciprofloxacin HCl [Cipro] 250 mg tablet 250 mg PO BID Qty: 14 1RF metformin 850 mg tablet 850 mg PO BID 0RF aspirin 81 mg Tablet,Delayed Release (Dr/Ec) 81 mg PO QAM 0RF Hold Instructions: Resume on 09/29/21. telmisartan 80 mg tablet See Rx Instructions .ROUTE .COMPLEX 0RF Rx Instructions: 80mg po qam and 40mg po qpm metoprolol tartrate 50 mg tablet 50 mg PO BID 0RF hydrochlorothiazide 25 mg tablet 25 mg PO QAM 0RF [id number] Tablet 1 tab PO DAILY 0RF PreserVision AREDS-2 250-90-40-1 mg Capsule 1 tab PO BID 0RF bicalutamide 50 mg Tablet 50 mg PO DAILY@0800 Qty: 30 3RF hydrocodone-acetaminophen 5-325 mg tablet 1 tab PO Q8H PRN (Reason: prn) Qty: 8 0RF docusate sodium 100 mg Capsule 100 mg PO BID Qty: 30 0RF tamsulosin 0.4 mg Capsule 0.4 mg PO DAILY Qty: 30 0RF finasteride 5 mg tablet 5 mg PO DAILY 0RF Referrals: Cornelius Pina NP [Primary Care Provider] - Coding Level of Care Code ED Draw Furnace Tender for Chg Fwd Exam Comprehensive
--- NOTE | 2022-01-13 22:04 | XRR_ITS ---
PROCEDURE INFORMATION: Exam: XR Chest Exam date and time: 01/13/2022 10:04 PM Age: 86 years old Clinical indication: Device placement; Ett placement (vent status); Prior surgery; Surgery type: Gb; Patient HX: Check S/P intubation. ; Additional info: Post intubation TECHNIQUE: Imaging protocol: XR of the chest. Views: 1 view. COMPARISON: CT kidney stone [id number] 09/11/2021 1:36 AM FINDINGS: Tubes, catheters and devices: Endotracheal tube tip over the distal trachea at the origin of the fabio. Lungs: Mild nonspecific right perihilar and left mid lung field opacities suggesting possible mild pneumonia. Pleural spaces: Unremarkable. No pleural effusion. No pneumothorax. Heart/Mediastinum: Unremarkable. No cardiomegaly. Bones/joints: Unremarkable. Organs: Stable cholecystectomy. XR/XR chest 1V portable [id number] IMPRESSION: 1. Endotracheal tube tip over the distal trachea at the origin of the fabio. 2. Mild nonspecific right perihilar and left mid lung field opacities suggesting possible mild pneumonia.
[2022-01-13 22:07] LABS: Alanine Aminotransferase 11 U/L (0-41); Albumin Level 4.4 g/dL (3.5-5.2); Alkaline Phosphatase 75 IU/L (40-130); Anion Gap 20.1 (5-19); Aspartate Amino Transferase 12 U/L (0-40); Blood Urea Nitrogen 21 mg/dL (8-23); Calcium 8.5 mg/dL (8.5-10.5); Carbon Dioxide 27 mmol/L (22-29); Chloride 95 mmol/L (98-107); Globulin 2.8 g/dL (1.3-4.6); Glucose 130 mg/dL (65-115); Osmolality Calculated 293 mOsm/kg (285-295); Potassium 3.1 mmol/L (3.5-5.1); Sodium 139 mmol/L (136-145); Total Bilirubin 0.5 mg/dL (0.15-1.2); Total Protein 7.2 g/dL (6.6-8.7)
[2022-01-13] MEDS: succinylcholine 20 mg/mL SDV 10mL 80 MG IVP (22:08)
[2022-01-13 22:13] VITALS: RESP 18
[2022-01-13 22:19] VITALS: PULSE 94; RESP 22; O2SAT 100
[2022-01-13] MEDS: labetalol 5 mg/mL SDV 20mL 10 MG IVP (22:25)
--- NOTE | 2022-01-13 22:25 | PC.NURSE ---
patient false teeth given to .
[2022-01-13] MEDS: propofol 1,000 MG/100 ML INJ 4.84 MG IV (22:26)
--- NOTE | 2022-01-13 22:28 | PC.NURSE ---
late entry EMS arrival with patient right sided facial droop and no movement to right side limbs, patient non verbal but will make eye contact with tactile stimuli. directly to CT for scan. received to room [address], with IV to right hand placed by EMS, 18g to L hand placed but nurse, 2200 etomodate 30mg and Succs 100mg given pre intubation, patient intubated, propofol initiated, cesar placed, EMS arrival for transport to another facility, propofal stopped and patient's family took 2 chains gold in color and his false teeth.
[2022-01-13] MEDS: midazolam 1 mg/mL INJ 2 mL 2 MG (22:29)
[2022-01-13 22:35] LABS: Add Urine Microscopic? NO; Charge for UA Resulting for Rev
[2022-01-13 22:47] LABS: Amphetamines Screen Urine Negative (Negative); Barbiturates Screen Urine Negative (Negative); Benzodiazepines Screen Urine Negative (Negative); Cocaine Screen Urine Negative (Negative); Opiate Screen Urine Negative (Negative); PCP Screen Urine Negative (Negative); THC Screen Urine Negative (Negative)
[2022-01-13 22:57] VITALS: BP 175/87; PULSE 87; RESP 14; TEMP 36.7
[2022-01-13 23:09] LABS: Bilirubin Urine Neg (Negative); Blood Urine Neg (Negative); Glucose Urine UA Trace (Normal); Ketones Urine Negative (Negative); Leukocyte Esterase Urine Negative (Negative); Nitrate Urine Negative (Negative); Protein Urine Neg (Negative); Urine Appearance Clear (CLEAR); Urine Color Yellow (Yellow); Urobilinogen Urine Norm (Negative); pH Urine 7 (5-7)
[2022-01-13 23:51] LABS: Glucose Point of Care 179 mg/dL (70-110)
== END 2022-01-13 23:00 ==
PROVIDERS: Emergency Medicine; Emergency Provider Emergency Medicine; PCP Nurse Practitioner Family
DX: I62.9 Nontraumatic intracranial hemorrhage, unspecified (principal); R41.82 Altered mental status, unspecified; Z79.84 Long term (current) use of oral hypoglycemic drugs; Z79.82 Long term (current) use of aspirin; I10 Essential (primary) hypertension; E11.9 Type 2 diabetes mellitus without complications; Z85.46 Personal history of malignant neoplasm of prostate
CPT/HCPCS: 31500; 36416; 51702; 70450; 71045; 80053; 80306; 81003; 82962; 85025; 85610; 85730; 94002; 94799; 96365; 96375; 99291; J0330; J2250; J2704; J3490